=== PATIENT | male | born 1970 | race Caucasian/White ===

== ENCOUNTER 2022-08-12 07:22 | Outpatient (CLI) | payer OTHER, SELFPAY ==
--- NOTE | ~2022-08-12 | PE_ITS ---
EXAMINATION: PET skull to mid thigh DATE: 08/12/2022 09:32 INDICATION: Adrenal mass. TECHNIQUE: Blood glucose level was 81 mg/dL. 11.258 mCi of 18-fluorodeoxyglucose (18-FDG) was adminis tered i.v. Low dose computed tomography (CT) images were acquired from the base of the brain to the p roximal thighs for attenuation correction and anatomic localization. Automated exposure control was e mployed. Dose-length product (DLP) was 1123 mGy-cm. Positron emission tomography (PET) images were ac quired in the same distribution. COMPARISON: None FINDINGS: Head/neck: There are no pathologically enlarged lymph nodes. Chest: The lungs demonstrate mild atelectasis. No pleural effusion. There is a moderate-sized sliding hiatal hernia. The heart size is normal. No pericardial effusion. There is mild mediastinal lymphade nopathy with activity similar to liver activity, likely reactive. Abdomen/pelvis/proximal thighs: There is diffuse hepatic steatosis. The gallbladder, spleen, pancreas , and right adrenal gland are normal. There is a 4.9 cm mass in left adrenal gland with areas of low attenuation and areas of soft tissue attenuation with activity similar to liver activity with maximum SUV of 3.6. There is a 4.9 cm cyst in right kidney. Left kidney is normal. There are no dilated loop s of bowel. The appendix is normal. There are no pathologically enlarged lymph nodes. There is no mary e intraperitoneal fluid. There is no osseous malignancy. IMPRESSION: 1. 4.9 cm left adrenal mass with activity similar to liver activity with maximum SUV of 3.6. The diff erential diagnosis includes adenoma and adrenal cortical carcinoma. Consider resection. Reviewed, dictated and finalized at location A. IMPRESSION: 1. 4.9 cm left adrenal mass with activity similar to liver activity with maximu m SUV of 3.6. The differential diagnosis includes adenoma and adrenal cortical carcinoma. Consider resection.
[2022-08-12 07:58] LABS: Glucose Point of Care 81 mg/dl (65-105)
== END 2022-08-12 07:23 | disposition home or self-care (01) ==
LOC: ANHIMG 07:33
PROVIDERS: PCP Internal Medicine; Visit Provider Internal Medicine Hematology & Oncology
DX: E27.8 Other specified disorders of adrenal gland (principal); D35.02 Benign neoplasm of left adrenal gland
CPT/HCPCS: 78815; A9552

== ENCOUNTER 2022-12-08 09:03 | Outpatient (CLI) | payer OTHER, SELFPAY ==
[2022-12-08 09:14] LABS: Basophils Absolute Auto 0.1 K/mm3 (0.0-0.1); Basophils Percent Auto 0.7 % (0.2-1.2); Eosinophils Absolute Auto 0.2 K/mm3 (0-0.3); Eosinophils Percent Auto 2.7 % (0-4.4); Hematocrit 39.9 % (42.0-52.0); Hemoglobin 13.5 g/dL (14.0-18.0); Immature Granulocyte Absolute 0.02 K/mm3 (0.00-0.031); Immature Granulocyte Percent A 0.3 % (0-0.5); Lymphocytes Absolute Auto 2.66 K/mm3 (0.9-3.2); Lymphocytes Percent Auto 37.6 % (18.3-44.2); Mean Corpuscular HGB Conc 33.8 g/dl (32-36); Mean Corpuscular Hemoglobin 29.5 pg (26-34); Mean Corpuscular Volume 87.3 fl (80-100); Mean Platelet Volume 9.9 fl (7.4-10.4); Monocytes Absolute Auto 0.6 K/mm3 (0.1-0.6); Neutrophils Absolute Auto 3.5 K/mm3 (1.3-6.7); Neutrophils Percent Auto 49.7 % (45.5-73.1); Platelet Count Result 342 k/mm3 (150-375); Red Blood Count 4.57 M/mm3 (4.6-6.20); Red Cell Distribution Width 12.7 % (11.5-14.5); White Blood Count 7.1 K/mm3 (4.5-10.0)
[2022-12-08 09:21] LABS: Blood Urea Nitrogen 14 mg/dL (8-26); Carbon Dioxide 24 mmol/L (22-30); Chloride 103 mmol/L (98-109); Estimated Glomerular Filt Rate > 60; Glucose 88 mg/dL (70-105); Ionized Calcium (POC) 1.22 mmol/L (1.11-1.31); Potassium 4.3 mmol/L (3.5-4.9); Sodium 139 mmol/L (138-146)
[2022-12-08 11:25] LABS: Alanine Aminotransferase 27 U/L (6-50); Albumin Level 4.5 g/dL (3.5-5.1); Alkaline Phosphatase 65 U/L (38-126); Anion Gap 8 mmol/L (8-16); Aspartate Amino Transferase 32 U/L (17-59); Bilirubin,Total 0.8 mg/dL (0.2-1.3); Blood Urea Nitrogen 14 mg/dL (9-20); Calcium 9.6 mg/dL (8.4-10.2); Carbon Dioxide 23 mmol/L (22-30); Chloride 103 mmol/L (98-107); Estimated Glomerular Filt Rate > 60; Glucose 87 mg/dL (65-110); Potassium 4.3 mmol/L (3.4-5.0); Sodium 134 mmol/L (137-145)
== END 2022-12-08 09:04 | disposition home or self-care (01) ==
LOC: ANHLAB 09:05
PROVIDERS: PCP Internal Medicine; Visit Provider Internal Medicine Hematology & Oncology
DX: E27.8 Other specified disorders of adrenal gland (principal)
CPT/HCPCS: 36415; 80047; 80053; 85025

== ENCOUNTER 2023-03-18 10:08 | Outpatient (CLI) | payer OTHER, SELFPAY ==
[2023-03-18 10:24] LABS: Basophils Absolute Auto 0.1 K/mm3 (0.0-0.1); Basophils Percent Auto 0.4 % (0.2-1.2); Eosinophils Absolute Auto 0.2 K/mm3 (0-0.3); Hemoglobin 13.7 g/dL (14.0-18.0); Immature Granulocyte Absolute 0.05 K/mm3 (0.00-0.031); Immature Granulocyte Percent A 0.3 % (0-0.5); Lymphocytes Absolute Auto 3.02 K/mm3 (0.9-3.2); Lymphocytes Percent Auto 19.9 % (18.3-44.2); Mean Corpuscular HGB Conc 34.3 g/dl (32-36); Mean Corpuscular Hemoglobin 29.7 pg (26-34); Mean Corpuscular Volume 86.6 fl (80-100); Mean Platelet Volume 9.7 fl (7.4-10.4); Monocytes Absolute Auto 1.3 K/mm3 (0.1-0.6); Monocytes Percent Auto 8.2 % (2.6-8.5); Neutrophils Absolute Auto 10.6 K/mm3 (1.3-6.7); Neutrophils Percent Auto 70.2 % (45.5-73.1); Platelet Count Result 316 k/mm3 (150-375); Red Blood Count 4.62 M/mm3 (4.6-6.20); Red Cell Distribution Width 13.1 % (11.5-14.5); White Blood Count 15.2 K/mm3 (4.5-10.0)
[2023-03-18 10:30] LABS: Blood Urea Nitrogen 11 mg/dL (8-26); Carbon Dioxide 23 mmol/L (22-30); Chloride 102 mmol/L (98-109); Estimated Glomerular Filt Rate > 60; Glucose 86 mg/dL (70-105); Ionized Calcium (POC) 1.25 mmol/L (1.11-1.31); Potassium 4.1 mmol/L (3.5-4.9); Sodium 138 mmol/L (138-146)
[2023-03-18 11:25] LABS: Alanine Aminotransferase 25 U/L (6-50); Albumin Level 4.7 g/dL (3.5-5.1); Alkaline Phosphatase 74 U/L (38-126); Anion Gap 13 mmol/L (8-16); Aspartate Amino Transferase 31 U/L (17-59); Blood Urea Nitrogen 12 mg/dL (9-20); Calcium 9.9 mg/dL (8.4-10.2); Carbon Dioxide 23 mmol/L (22-30); Chloride 102 mmol/L (98-107); Estimated Glomerular Filt Rate > 60; Glucose 83 mg/dL (65-110); Potassium 4.1 mmol/L (3.4-5.0); Sodium 138 mmol/L (137-145)
== END 2023-03-18 10:09 | disposition home or self-care (01) ==
LOC: ANHLAB 10:10
PROVIDERS: PCP Internal Medicine; Visit Provider Internal Medicine Hematology & Oncology
DX: E27.8 Other specified disorders of adrenal gland (principal)
CPT/HCPCS: 36415; 80047; 80053; 85025

== ENCOUNTER 2023-06-16 08:42 | Outpatient (CLI) | payer OTHER, SELFPAY ==
[2023-06-16 09:05] LABS: Basophils Percent Auto 0.4 % (0.2-1.2); Eosinophils Absolute Auto 0.1 K/mm3 (0-0.3); Eosinophils Percent Auto 1.8 % (0-4.4); Hematocrit 38.7 % (42.0-52.0); Hemoglobin 13.1 g/dL (14.0-18.0); Immature Granulocyte Absolute 0.01 K/mm3 (0.00-0.031); Immature Granulocyte Percent A 0.1 % (0-0.5); Lymphocytes Absolute Auto 2.67 K/mm3 (0.9-3.2); Lymphocytes Percent Auto 36.8 % (18.3-44.2); Mean Corpuscular HGB Conc 33.9 g/dl (32-36); Mean Corpuscular Hemoglobin 29.7 pg (26-34); Mean Corpuscular Volume 87.8 fl (80-100); Mean Platelet Volume 10.1 fl (7.4-10.4); Monocytes Absolute Auto 0.6 K/mm3 (0.1-0.6); Monocytes Percent Auto 8.4 % (2.6-8.5); Neutrophils Absolute Auto 3.8 K/mm3 (1.3-6.7); Neutrophils Percent Auto 52.5 % (45.5-73.1); Platelet Count Result 268 k/mm3 (150-375); Red Blood Count 4.41 M/mm3 (4.6-6.20); Red Cell Distribution Width 13.2 % (11.5-14.5); White Blood Count 7.3 K/mm3 (4.5-10.0)
[2023-06-16 10:37] LABS: Alanine Aminotransferase 30 U/L (6-50); Albumin Level 4.3 g/dL (3.5-5.1); Alkaline Phosphatase 63 U/L (38-126); Anion Gap 8 mmol/L (8-16); Aspartate Amino Transferase 39 U/L (17-59); Bilirubin,Total 1.4 mg/dL (0.2-1.3); Blood Urea Nitrogen 15 mg/dL (9-20); Calcium 9.2 mg/dL (8.4-10.2); Carbon Dioxide 23 mmol/L (22-30); Chloride 107 mmol/L (98-107); Estimated Glomerular Filt Rate > 60; Glucose 90 mg/dL (65-110); Potassium 4.1 mmol/L (3.4-5.0); Sodium 138 mmol/L (137-145)
== END 2023-06-16 08:43 | disposition home or self-care (01) ==
LOC: ANHLAB 08:43
PROVIDERS: PCP Internal Medicine; Visit Provider Internal Medicine Hematology & Oncology
DX: E27.8 Other specified disorders of adrenal gland (principal)
CPT/HCPCS: 36415; 80053; 85025

== ENCOUNTER 2024-06-24 08:46 | Outpatient (CLI) | payer OTHER, SELFPAY ==
[2024-06-24 08:58] LABS: Basophils Absolute Auto 0.1 K/mm3 (0.0-0.1); Basophils Percent Auto 0.7 % (0.2-1.2); Eosinophils Absolute Auto 0.2 K/mm3 (0-0.3); Eosinophils Percent Auto 3.3 % (0-4.4); Hematocrit 43.1 % (42.0-52.0); Hemoglobin 14.4 g/dL (14.0-18.0); Immature Granulocyte Absolute 0.02 K/mm3 (0.00-0.031); Immature Granulocyte Percent A 0.3 % (0-0.5); Lymphocytes Absolute Auto 2.69 K/mm3 (0.9-3.2); Lymphocytes Percent Auto 37.5 % (18.3-44.2); Mean Corpuscular HGB Conc 33.4 g/dl (32-36); Mean Corpuscular Hemoglobin 29.3 pg (26-34); Mean Corpuscular Volume 87.6 fl (80-100); Mean Platelet Volume 9.7 fl (7.4-10.4); Monocytes Absolute Auto 0.5 K/mm3 (0.1-0.6); Monocytes Percent Auto 7.1 % (2.6-8.5); Neutrophils Absolute Auto 3.7 K/mm3 (1.3-6.7); Neutrophils Percent Auto 51.1 % (45.5-73.1); Platelet Count Result 297 k/mm3 (150-375); Red Blood Count 4.92 M/mm3 (4.6-6.20); Red Cell Distribution Width 13.2 % (11.5-14.5); White Blood Count 7.2 K/mm3 (4.5-10.0)
[2024-06-24 09:02] LABS: Blood Urea Nitrogen 19 mg/dL (8-26); Carbon Dioxide 23 mmol/L (22-30); Chloride 106 mmol/L (98-109); Estimated Glomerular Filt Rate > 60; Glucose 95 mg/dL (70-105); Ionized Calcium (POC) 1.19 mmol/L (1.11-1.31); Potassium 4.3 mmol/L (3.5-4.9); Sodium 140 mmol/L (138-146)
--- OUTSIDE RECORDS SUMMARY | 2024-06-24 09:14 | XMS_ITS | Encounter Summary ---
Author Organization [facility] [employer] [facility] Address [address] [place] [address] Care Team Providers Care Slurry Mixer Name Role Phone Fela Pelayo MD Primary Care Provider Encounter Details Date Type Department Care Team (Late st Contact Info) Description 06/23/2024 Orders Only [facility] Oncology [facility] Hematology [facility] [address] [place] [address] Franky Whyte MD [email or web address] [place] [id number] Adrenal mass (Primary Dx) Social History Tobacco Use Types Packs/Day Years Used Date Smoking Tobacco: Former Cigarettes Q uit: 11/2021 Smokeless Tobacco: Never Alcohol Use Standard Drinks/Week Comments Not Currently 0 (1 standard drink = 0.6 oz pur e alcohol) Feeling Safe Answer Date Recorded Are you in a relationship wi th someone who hurts you emotionally and/or physically? 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 Visit [facility] Oncology and Hematology [facility] [address] [place] [address] Franky Whyte MD [email or web address] [place] [address] Arrived 09/06/2024 9:00 AM CDT Office Visit [facility] UROLOGY - [place] [address] [facility] [address] [place] [address] Shanae Lyman MD [address] [facility] [address] [place] [address] Scheduled Orders Name Type Priority Associated Diagnoses Orde r Schedule CBC WITH DIFFERENTIAL Lab Routine Adrenal mass Expected: 06/23/2024, Expires: 06/23/2025 COMPREHENSIVE METABOLIC PANEL Lab Routine Adrenal mass Expected: 06/23/2024, Expires: 06/23/2025 documented as of this encounter Visit Diagnoses Diagnosis Adrenal mass- Primary Unspecified disorder of adrenal glands documented in this encounter Care Teams Slurry Mixer Relationship Specialty Start Date End Date Fela Pelayo MD PCP - General Internal Medicine 07/25/22 documented as of this encounter
--- OUTSIDE RECORDS SUMMARY | 2024-06-24 09:14 | XMS_ITS | Data Portability ---
Author Organization [employer] [facility] [employer], Main Office Address [address] [place] [id number] Care Team Providers Care Energy Derivatives Trader Name Role Phone IVAN WHYTE Counter Molder FELA PELAYO Primary Care Provider BRUNILDA CRUZ Terminal Computer Operator ABBY MURRIETA Guest House Manager HIMANSHU LYMAN Urologist Assessment Encounter Date Assessment Date Assessment LastModified by Organization Details LastModified Time 10/14/2022 10/14/2022 06/18/2022: LDL 120 VIT D 27.7 CMP: BUN 20 CBC: WNL TSH/FT4: WNL Not available 10/13/2022 08:53:58 12/30/2022 12/30/2022 06/18/2022: LDL 120 VIT D 27.7 CMP: BUN 20 CBC: WNL TSH/FT4: WNL 10/21/2022: PSA 1.13 TSH/FT4/Lipid s: WNL 12/08/2022: Dr Whyte HGB/HCT 13.5/39.9 Not available 12/29/2022 08:31:32 04/23/2023 04/23/2023 06/18/2022: LDL 120 VIT D 27.7 CMP: BUN 20 CBC: WNL TSH/FT4: WNL 10/21/2022: PSA 1.13 TSH/FT4/Lipid s: WNL 12/08/2022: Dr Whyte HGB/HCT 13.5/39.9 04/16/2023: TSH/CBC/VIT D: WNL BUN 21 Not available 04/23/2023 09:27:38 09/22/2023 09/22/2023 06/18/2022: LDL 120 VIT D 27.7 CMP: BUN 20 CBC: WNL TSH/FT4: WNL 10/21/2022: PSA 1.13 TSH/FT4/Lipid s: WNL 12/08/2022: Dr Whyte HGB/HCT 13.5/39.9 04/16/2023: TSH/CBC/VIT D: WNL BUN 21 09/17/2023: BUN 20, T bili 1.40H Not available 09/22/2023 09:31:37 03/22/2024 03/22/2024 06/18/2022: LDL 120 VIT D 27.7 CMP: BUN 20 CBC: WNL TSH/FT4: WN 10/21/2022: PSA 1.13 TSH/FT4/Lipid s: WN 12/08/2022: Dr Whyte HGB/HCT 13.5/39.9 04/16/2023: TSH/CBC/VIT D: WNL BUN 21 09/17/2023: BUN 20, T bili 1.40H 03/17/2024: Stable Not available 03/22/2024 10:12:52 Plan of Treatment Reminders Order Date Submit Date Provider Last Modified By Organization Details Last Modified Time Details Appointments Any 15 2024 08:30A Na [email or web address] MD Not available Not available Not available Lab vitamin D, 25-hydrox y, total, serum [address] (Lab), [address] [place], [address], 03/22/2024 10:14:14 lipid panel, serum [address] (Lab), [address] [place], [address], 03/22/2024 10:14:13 TSH, serum or plasma [address] (Lab), [address] [place], [address], 03/22/2024 10:14:13 CMP, serum or plasma [address] (Lab), [address] [place], [address], 03/22/2024 10:14:13 CBC w/ auto diff [address] (Lab), [address] [place], [address], 03/22/2024 10:14:14 lipid panel, serum 2023 024 [facility] (Lab), [address] [place], [address], 03/17/2024 11:12:58 TSH, serum or plasma 2023 024 [facility] (Lab), [address] [place], [address], 03/17/2024 11:36:57 CMP, serum or plasma 2023 024 [facility] (Lab), [address] [place], [address], 03/17/2024 11:13:01 CBC w/ auto diff 2023 024 [facility] (Lab), [address] [place], [address], 03/17/2024 10:47:49 vitamin D, 25-hydrox y, total, serum [address] (Lab), [address] [place], [address], 03/29/2024 16:04:59 vitamin D, 25-hydrox y, total, serum [address] (Lab), [address] [place], [address], 10/20/2023 09:53:34 lipid panel, serum 2022 023 [facility] (Lab), [address] [place], [address], 09/17/2023 12:08:14 TSH, serum or plasma 2022 023 [facility] (Lab), [address] [place], [address], 09/17/2023 12:38:50 CMP, serum or plasma 2022 023 [facility] (Lab), [address] [place], [address], 06/16/2023 12:57:32 CBC w/ auto diff 2022 023 [facility] (Lab), [address] [place], [address], 09/17/2023 11:58:02 vitamin D, 25-hydrox y, total, serum [address] (Lab), [address] [place], [address], 06/29/2023 09:04:27 lipid panel, serum 2022 023 [facility] (Lab), [address] [place], [address], 04/16/2023 10:43:55 TSH, serum or plasma 2022 023 [facility] (Lab), [address] [place], [address], 04/16/2023 10:45:26 CMP, serum or plasma 2022 023 [facility] (Lab), [address] [place], [address], 03/19/2023 00:39:23 CBC w/ auto diff 2022 023 [facility] (Lab), [address] [place], [address], 03/18/2023 14:10:08 PSA, total, serum or plasma 2022 023 [facility] (Lab), [address] [place], [address], 10/21/2022 11:15:17 vitamin D, 25-hydrox y, total, serum [email or web address] (Lab), [address] [place], [address], 05/05/2023 17:38:50 lipid panel, serum 2022 023 [facility] (Lab), [address] [place], [address], 10/21/2022 10:36:03 TSH, serum or plasma 2022 023 [facility] (Lab), [address] [place], [address], 10/21/2022 11:15:10 CMP, serum or plasma 2022 023 [facility] (Lab), [address] [place], [address], 10/21/2022 10:36:09 CBC w/ auto diff 2022 023 [facility] (Lab), [address] [place], [address], 10/21/2022 10:12:07 Referral pulmonolo gist referral 2023 024 Johann Sawant MD, [address] [facility] [place], [address], 03/23/2024 15:14:34 hepatolog ist referral - Please call patient to schedule. 2023 024 [email or web address] Abby Murrieta MD, [address] [facility], [address], [place], [address], 06/23/2024 08:57:28 cardiolog ist referral 2023 024 [email or web address] [place], [address], [address], [place], [address], 03/23/2024 15:11:26 pulmonolo gist referral 2023 024 [email or web address] Johann Sawant MD, [address] [facility] [place], [address], 12/21/2023 16:58:56 cardiolog ist referral 2023 024 [email or web address] [place], [address], [address], [place], [address], 03/29/2024 16:05:13 oncologis t referral 2023 024 [email or web address] Not available 01/18/2024 12:38:57 cardiolog ist referral 2022 023 [place], [address], [address], [place], [address], 06/23/2023 12:37:44 Procedures None recorded. Surgeries None recorded. Imaging CT, chest, w/o contrast - no auth required [id number] [facility] ([facility]), [address] [place], [address], 10/06/2023 08:59:21 US, liver - no auth required [email or web address] [facility] ([facility]), [address] [place], [address], 12/15/2023 16:21:52 Medication Orders None recorded. Patient TargetsNo targets recorded. Patient InstructionsNo instructions recorded. Reason for Referral Terminal Computer Operator Referral for Sc reening for cardiovascular system disease Referring Physician: Fela Pelayo Internal Medicine, Encounter Date: 04/23/2023 Terminal Computer Operator Referral for Sc reening for cardiovascular system disease Referring Physician: Stephanie Alonso Medicine, Encounter Date: 09/22/2023 Leasing Representative Referral for O bstructive sleep apnea syndrome Referring Physician: Stephanie Alonso Medicine, Encounter Date: 09/22/2023 Referring Physician: Stephanie Alonso Medicine, Encounter Date: 09/22/2023 Terminal Computer Operator Referral for Sc reening for cardiovascular system disease Referring Physician: Stephanie Alonso Medicine, Encounter Date: 03/22/2024 Leasing Representative Referral for O bstructive sleep apnea syndrome Referring Physician: Stephanie Alonso Medicine, Encounter Date: 03/22/2024 Hospital Internship Referral for He patomegaly Please call patient to schedule. Referring Physician: Stephanie Alonso, Encounter Date: 03/22/2024 Results Created Date Observation Date Name Description Value Unit Range Abnormal Flag Note LastModifiedBy Organization Detail LastModifiedTime 10/22/19 23 10/21/2022 CBC/C OMPLE TE BLD COUNT W/DIF F white blood cells 9.7 x10'3 /uL 4.2-10 .8 Not Available [facility] (Lab) [address] [place], [address], 10/21/2022 10:12:07 10/22/19 23 10/21/2022 CBC/C OMPLE TE BLD COUNT W/DIF F red blood cells 4.72 x10'6 /uL 4.10-5 .80 Not Available [facility] (Lab) [address] [place], [address], 10/21/2022 10:12:07 10/22/19 23 10/21/2022 CBC/C OMPLE TE BLD COUNT W/DIF F hemoglobin 13.9 g/dL 13.2-1 7.0 Not Available [facility] (Lab) [address] [place], [address], 10/21/2022 10:12:07 10/22/19 23 10/21/2022 CBC/C OMPLE TE BLD COUNT W/DIF F hematocrit 42.0 % 39.3-5 0.0 Not Available [facility] (Lab) [address] [place], [address], 10/21/2022 10:12:07 10/22/19 23 10/21/2022 CBC/C OMPLE TE BLD COUNT W/DIF F mean red cell volume 89.0 fL 80.0-9 7.0 Not Available [facility] (Lab) [address] [place], [address], 10/21/2022 10:12:07 10/22/19 23 10/21/2022 CBC/C OMPLE TE BLD COUNT W/DIF F mean red cell hemoglobin 29.4 pg 27.0-3 3.0 Not Available [facility] (Lab) [address] [place], [address], 10/21/2022 10:12:07 10/22/19 23 10/21/2022 CBC/C OMPLE TE BLD COUNT W/DIF F mean RBC HGB concentratio n 33.1 g/dL 31.0-3 6.0 Not Available [facility] (Lab) [address] [place], [address], 10/21/2022 10:12:07 10/22/19 23 10/21/2022 CBC/C OMPLE TE BLD COUNT W/DIF F red cell distribution width 13.3 % 11.8-1 5.5 Not Available [facility] (Lab) [address] [place], [address], 10/21/2022 10:12:07 10/22/19 23 10/21/2022 CBC/C OMPLE TE BLD COUNT W/DIF F platelets 322 x10'3 /uL 150-40 0 Not Available [facility] (Lab) [address] [place], [address], 10/21/2022 10:12:07 10/22/19 23 10/21/2022 CBC/C OMPLE TE BLD COUNT W/DIF F mean platelet volume 10.3 fL 9.0-12 .4 Not Available [facility] (Lab) [address] [place], [address], 10/21/2022 10:12:07 10/22/19 23 10/21/2022 CBC/C OMPLE TE BLD COUNT W/DIF F neutrophils 65.8 % 39.0-7 2.0 Not Available [facility] (Lab) [address] [place], [address], 10/21/2022 10:12:07 10/22/19 23 10/21/2022 CBC/C OMPLE TE BLD COUNT W/DIF F lymphocytes 23.4 % 16.0-4 7.0 Not Available [facility] (Lab) [address] [place], [address], 10/21/2022 10:12:07 10/22/19 23 10/21/2022 CBC/C OMPLE TE BLD COUNT W/DIF F monocytes 7.4 % 5.0-12 .0 Not Available [facility] (Lab) [address] [place], [address], 10/21/2022 10:12:07 10/22/19 23 10/21/2022 CBC/C OMPLE TE BLD COUNT W/DIF F eosinophils 2.4 % 1.0-7. 0 Not Available [facility] (Lab) [address] [place], [address], 10/21/2022 10:12:07 10/22/19 23 10/21/2022 CBC/C OMPLE TE BLD COUNT W/DIF F basophils 0.6 % 0.0-2. 0 Not Available [facility] (Lab) [address] [place], [address], 10/21/2022 10:12:07 10/22/19 23 10/21/2022 CBC/C OMPLE TE BLD COUNT W/DIF F immature granulocytes 0.4 % 0.00-0 .50 Not Available [facility] (Lab) [address] [place], [address], 10/21/2022 10:12:07 10/22/19 23 10/21/2022 CBC/C OMPLE TE BLD COUNT W/DIF F neutrophils, absolute count 6.35 x10'3 /uL 1.5-8. 0 Not Available [facility] (Lab) [address] [place], [address], 10/21/2022 10:12:07 10/22/19 23 10/21/2022 CBC/C OMPLE TE BLD COUNT W/DIF F lymphocytes, absolute count 2.26 x10'3 /uL 1.07-3 .43 Not Available [facility] (Lab) [address] [place], [address], 10/21/2022 10:12:07 10/22/19 23 10/21/2022 CBC/C OMPLE TE BLD COUNT W/DIF F monocytes, absolute count 0.71 x10'3 /uL 0.29-0 .99 Not Available [facility] (Lab) [address] [place], [address], 10/21/2022 10:12:07 10/22/19 23 10/21/2022 CBC/C OMPLE TE BLD COUNT W/DIF F eosinophils, absolute count 0.23 x10'3 /uL 0.02-0 .53 Not Available [facility] (Lab) [address] [place], [address], 10/21/2022 10:12:07 10/22/19 23 10/21/2022 CBC/C OMPLE TE BLD COUNT W/DIF F basophils, absolute count 0.06 x10'3 /uL 0.01-0 .08 Not Available [facility] (Lab) [address] [place], [address], 10/21/2022 10:12:07 10/22/19 23 10/21/2022 CBC/C OMPLE TE BLD COUNT W/DIF F immature granulocytes ,absolute 0.04 x10'3 /uL 0.00-0 .05 Not Available [facility] (Lab) [address] [place], [address], 10/21/2022 10:12:07 10/22/19 23 10/21/2022 CBC/C OMPLE TE BLD COUNT W/DIF F nucleated red blood cells 0.0 % -0 Not Available [facility] (Lab) [address] [place], [address], 10/21/2022 10:12:07 10/22/19 23 10/21/2022 CBC/C OMPLE TE BLD COUNT W/DIF F NRBC# 0.00 x10'3 /uL Not Available [facility] (Lab) [address] [place], [address], 10/21/2022 10:12:07 10/22/19 23 10/21/2022 LIPID PANEL cholesterol 142 mg/dL 140-19 9 NIH STEVE NSUS RECOM MENDA TION FOR FABIO STERO L: ADULT CHILD LOW RISK: <200 <170 BORDE RLINE : <200- 239 ----- HIGH RISK: >240 >200 Not Available [facility] (Lab) [address] [place], [address], 10/21/2022 10:36:03 10/22/19 23 10/21/2022 LIPID PANEL triglyceride s 96 mg/dL 0-150 NIH STEVE NSUS REPOR T RECOM MENDA TION FOR TRIGL YCERI TIFFANIE: ADULT CHILD LOW RISK: <150 ----- BODER LINE: 150-1 99 ----- HIGH RISK: >200 ----- Not Available [facility] (Lab) [address] [place], [address], 10/21/2022 10:36:03 10/22/19 23 10/21/2022 LIPID PANEL HDL cholesterol 37 mg/dL 40- low Not Available [facility] (Lab) [address] [place], [address], 10/21/2022 10:36:03 10/22/19 23 10/21/2022 LIPID PANEL LDL cholesterol, calculated 86 mg/dL 0-130 NIH STEVE NSUS REPOR T RECOM MENDA TIONS FOR LDL: ADULT CHILD LOW RISK <130 <110 (OPTI MAL LDL) <100 ----- BORDE RLINE : 130-1 59 ----- HIGH RISK: >160 >130 A TRIGL YCERI DE RESUL T >400 INVAL IDATE S THE CALCU LATIO N FOR LDL FRACT IONAT ION - THE LDL RESUL T WILL NOT BE REPOR MARKIE. Not Available [facility] (Lab) [address] [place], [address], 10/21/2022 10:36:03 10/22/19 23 10/21/2022 COMPR EHENS SB METAB OLIC PANEL sodium 141 mmol/ L 137-14 5 Not Available [facility] (Lab) [address] [place], [address], 10/21/2022 10:36:09 10/22/19 23 10/21/2022 COMPR EHENS SB METAB OLIC PANEL potassium 4.3 mmol/ L 3.5-5. 1 Not Available [facility] (Lab) [address] [place], [address], 10/21/2022 10:36:09 10/22/19 23 10/21/2022 COMPR EHENS SB METAB OLIC PANEL chloride 103 mmol/ L 98-107 Not Available [facility] (Lab) [address] [place], [address], 10/21/2022 10:36:09 10/22/19 23 10/21/2022 COMPR EHENS SB METAB OLIC PANEL carbon dioxide 26 mmol/ L 22-30 Not Available [facility] (Lab) [address] [place], [address], 10/21/2022 10:36:09 10/22/19 23 10/21/2022 COMPR EHENS SB METAB OLIC PANEL anion gap 16.3 mmol/ L 14-22 Not Available [facility] (Lab) [address] [place], [address], 10/21/2022 10:36:09 10/22/19 23 10/21/2022 COMPR EHENS SB METAB OLIC PANEL glucose 96 mg/dL 70-99 Not Available [facility] (Lab) [address] [place], [address], 10/21/2022 10:36:09 10/22/19 23 10/21/2022 COMPR EHENS SB METAB OLIC PANEL BUN 14 mg/dL 8-19 Not Available [facility] (Lab) [address] [place], [address], 10/21/2022 10:36:09 10/22/19 23 10/21/2022 COMPR EHENS SB METAB OLIC PANEL creatinine 0.85 mg/dL 0.66-1 .25 Not Available [facility] (Lab) [address] [place], [address], 10/21/2022 10:36:09 10/22/19 23 10/21/2022 COMPR EHENS SB METAB OLIC PANEL GFR >60 Refer ence Range : [place] ge GFR Healt hy Adult : >60 mL/mi n/1.7 3 m2 Chron ic Kidne y Disea se: 15-60 mL/mi n/1.7 3 m2 Kidne y Failu re: <15/m L/min /1.73 m2 www.n iddk. nih.g ov The MDRD study equat ion has not been valid ated in child bing <18 years of age; pregn ant women ; the elder ly >85 years of age; or in some racia l or ethni c subgr oups, such as Hisnj nics. Outsi de the valid ated justino eters , estim ated GFR is less accur ate, requi ring clini noam judgm ent on a case- by-ca se basis . Clini noam inter preta tion for other races and ages must be made by the clini marty. The MDRD study equat ion has not been valid ated for the evalu ation of serum creat inine relat ed to nutri tc l statu s or medic ation usage . For perso ns <18 years of age, a pedia tric GFR calcu lator is avail able on the [facility] websi te: https ://nicanor w.kid levi.o rg/pr ofess ional s/kdo qi/gf r_cal culat or Not Available [facility] (Lab) [address] [place], [address], 10/21/2022 10:36:09 10/22/19 23 10/21/2022 COMPR EHENS SB METAB OLIC PANEL alkaline phosphatase 51 U/L 38-126 Not Available [facility] (Lab) [address] [place], [address], 10/21/2022 10:36:09 10/22/19 23 10/21/2022 COMPR EHENS SB METAB OLIC PANEL alanine aminotransfe rase 43 U/L 0-50 Not Available [facility] (Lab) [address] [place], [address], 10/21/2022 10:36:09 10/22/19 23 10/21/2022 COMPR EHENS SB METAB OLIC PANEL aspartate aminotransfe rase 46 U/L 15-46 Not Available [facility] (Lab) [address] [place], [address], 10/21/2022 10:36:09 10/22/19 23 10/21/2022 COMPR EHENS SB METAB OLIC PANEL bilirubin, total 0.90 mg/dL 0.20-1 .30 Not Available [facility] (Lab) [address] [place], [address], 10/21/2022 10:36:09 10/22/19 23 10/21/2022 COMPR EHENS SB METAB OLIC PANEL calcium 10.7 mg/dL 8.4-10 .2 high Not Available [facility] (Lab) [address] [place], [address], 10/21/2022 10:36:09 10/22/19 23 10/21/2022 COMPR EHENS SB METAB OLIC PANEL total protein 7.5 g/dL 6.3-8. 2 Not Available [facility] (Lab) [address] [place], [address], 10/21/2022 10:36:09 10/22/19 23 10/21/2022 COMPR EHENS SB METAB OLIC PANEL albumin 4.3 g/dL 3.4-5. 0 Not Available [facility] (Lab) [address] [place], [address], 10/21/2022 10:36:09 10/22/19 23 10/21/2022 COMPR EHENS SB METAB OLIC PANEL globulin 3.2 g/dL 2.6-4. 2 Not Available [facility] (Lab) [address] [place], [address], 10/21/2022 10:36:09 10/22/19 23 10/21/2022 COMPR EHENS SB METAB OLIC PANEL A/G ratio 1.3 ratio 1.0-2. 0 Not Available [facility] (Lab) [address] [place], [address], 10/21/2022 10:36:09 10/22/19 23 10/21/2022 VITAM IN D 25-HY DROXY [id number] 49.8 NG/mL 30-100 Vitam in D Statu s: Defic ient: <20 ng/mL Insuf ficie nt: 20-29 ng/mL Suffi cient : 30-10 0 ng/mL Not Available [facility] (Lab) [address] [place], [address], 10/21/2022 10:49:47 10/22/19 23 10/21/2022 TSH W/REF TRACIE FT4 TSH with reflex free T4 1.710 uIU/m L 0.465- 4.680 Not Available [facility] (Lab) [address] [place], [address], 10/21/2022 11:15:09 10/22/19 23 10/21/2022 PSA SCREE N PSA medicare screen 1.13 NG/mL 0.00-4 .00 Not Available [facility] (Lab) [address] [place], [address], 10/21/2022 11:15:17 04/16/20 23 04/16/2023 LIPID PANEL cholesterol 143 mg/dL 140-19 9 NIH STEVE NSUS RECOM MENDA TION FOR FABIO STERO L: ADULT CHILD LOW RISK: <200 <170 BORDE RLINE : <200- 239 ----- HIGH RISK: >240 >200 Not Available [facility] (Lab) [address] [place], [address], 04/16/2023 10:43:54 04/16/20 23 04/16/2023 LIPID PANEL triglyceride s 115 mg/dL 0-150 NIH STEVE NSUS REPOR T RECOM MENDA TION FOR TRIGL YCERI TIFFANIE: ADULT CHILD LOW RISK: <150 ----- BODER LINE: 150-1 99 ----- HIGH RISK: >200 ----- Not Available [facility] (Lab) [address] [place], [address], 04/16/2023 10:43:54 04/16/20 23 04/16/2023 LIPID PANEL HDL cholesterol 30 mg/dL 40- low Not Available [facility] (Lab) [address] [place], [address], 04/16/2023 10:43:54 04/16/20 23 04/16/2023 LIPID PANEL LDL cholesterol, calculated 90 mg/dL 0-130 NIH STEVE NSUS REPOR T RECOM MENDA TIONS FOR LDL: ADULT CHILD LOW RISK <130 <110 (OPTI MAL LDL) <100 ----- BORDE RLINE : 130-1 59 ----- HIGH RISK: >160 >130 A TRIGL YCERI DE RESUL T >400 INVAL IDATE S THE CALCU LATIO N FOR LDL FRACT IONAT ION - THE LDL RESUL T WILL NOT BE REPOR MARKIE. Not Available [facility] (Lab) [address] [place], [address], 04/16/2023 10:43:54 04/16/20 23 04/16/2023 COMPR EHENS SB METAB OLIC PANEL sodium 138 mmol/ L 137-14 5 Not Available [facility] (Lab) [address] [place], [address], 04/16/2023 10:44:00 04/16/20 23 04/16/2023 COMPR EHENS SB METAB OLIC PANEL potassium 4.8 mmol/ L 3.5-5. 1 Not Available [facility] (Lab) [address] [place], [address], 04/16/2023 10:44:00 04/16/20 23 04/16/2023 COMPR EHENS SB METAB OLIC PANEL chloride 104 mmol/ L 98-107 Not Available [facility] (Lab) [address] [place], [address], 04/16/2023 10:44:00 04/16/20 23 04/16/2023 COMPR EHENS SB METAB OLIC PANEL carbon dioxide 23 mmol/ L 22-30 Not Available [facility] (Lab) [address] [place], [address], 04/16/2023 10:44:00 04/16/20 23 04/16/2023 COMPR EHENS SB METAB OLIC PANEL anion gap 15.8 mmol/ L 14-22 Not Available [facility] (Lab) [address] [place], [address], 04/16/2023 10:44:00 04/16/20 23 04/16/2023 COMPR EHENS SB METAB OLIC PANEL glucose 94 mg/dL 70-99 Not Available [facility] (Lab) [address] [place], [address], 04/16/2023 10:44:00 04/16/20 23 04/16/2023 COMPR EHENS SB METAB OLIC PANEL BUN 21 mg/dL 8-19 high Not Available [facility] (Lab) [address] [place], [address], 04/16/2023 10:44:00 04/16/20 23 04/16/2023 COMPR EHENS SB METAB OLIC PANEL creatinine 0.96 mg/dL 0.66-1 .25 Not Available [facility] (Lab) [address] [place], [address], 04/16/2023 10:44:00 04/16/20 23 04/16/2023 COMPR EHENS SB METAB OLIC PANEL GFR >60 Refer ence Range : [place] ge GFR Healt hy Adult : >60 mL/mi n/1.7 3 m2 Chron ic Kidne y Disea se: 15-60 mL/mi n/1.7 3 m2 Kidne y Failu re: <15/m L/min /1.73 m2 www.n iddk. nih.g ov The MDRD study equat ion has not been valid ated in child bing <18 years of age; pregn ant women ; the elder ly >85 years of age; or in some racia l or ethni c subgr oups, such as Conc[place] nics. Outsi de the valid ated justino eters , estim ated GFR is less accur ate, requi ring clini noam judgm ent on a case- by-ca se basis . Clini noam inter preta tion for other races and ages must be made by the clini marty. The MDRD study equat ion has not been valid ated for the evalu ation of serum creat inine relat ed to nutri tc l statu s or medic ation usage . For perso ns <18 years of age, a pedia tric GFR calcu lator is avail able on the [facility] websi te: https ://nicanor sims.marielena rg/pr ofess ional s/kdo qi/gf r_cal culat or Not Available [facility] (Lab) [address] [place], [address], 04/16/2023 10:44:00 04/16/20 23 04/16/2023 COMPR EHENS SB METAB OLIC PANEL alkaline phosphatase 58 U/L 38-126 Not Available [facility] (Lab) [address] [place], [address], 04/16/2023 10:44:00 04/16/20 23 04/16/2023 COMPR EHENS SB METAB OLIC PANEL alanine aminotransfe rase 28 U/L 0-50 Not Available [facility] (Lab) [address] [place], [address], 04/16/2023 10:44:00 04/16/20 23 04/16/2023 COMPR EHENS SB METAB OLIC PANEL aspartate aminotransfe rase 34 U/L 15-46 Not Available [facility] (Lab) [address] [place], [address], 04/16/2023 10:44:00 04/16/20 23 04/16/2023 COMPR EHENS SB METAB OLIC PANEL bilirubin, total 1.10 mg/dL 0.20-1 .30 Not Available [facility] (Lab) [address] [place], [address], 04/16/2023 10:44:00 04/16/20 23 04/16/2023 COMPR EHENS SB METAB OLIC PANEL calcium 9.1 mg/dL 8.4-10 .2 Not Available [facility] (Lab) [address] [place], [address], 04/16/2023 10:44:00 04/16/20 23 04/16/2023 COMPR EHENS SB METAB OLIC PANEL total protein 7.8 g/dL 6.3-8. 2 Not Available [facility] (Lab) [address] [place], [address], 04/16/2023 10:44:00 04/16/20 23 04/16/2023 COMPR EHENS SB METAB OLIC PANEL albumin 4.4 g/dL 3.4-5. 0 Not Available [facility] (Lab) [address] [place], [address], 04/16/2023 10:44:00 04/16/20 23 04/16/2023 COMPR EHENS SB METAB OLIC PANEL globulin 3.4 g/dL 2.6-4. 2 Not Available [facility] (Lab) [address] [place], [address], 04/16/2023 10:44:00 04/16/20 23 04/16/2023 COMPR EHENS SB METAB OLIC PANEL A/G ratio 1.3 ratio 1.0-2. 0 Not Available [facility] (Lab) [address] [place], [address], 04/16/2023 10:44:00 04/16/20 23 04/16/2023 TSH W/REF TRACIE FT4 TSH with reflex free T4 2.480 uIU/m L 0.465- 4.680 Not Available [facility] (Lab) [address] [place], [address], 04/16/2023 11:35:30 04/16/20 23 04/16/2023 VITAM IN D 25-HY DROXY [id number] 45.1 NG/mL 30-100 Vitam in D Statu s: Defic ient: <20 ng/mL Insuf ficie nt: 20-29 ng/mL Suffi cient : 30-10 0 ng/mL Not Available [facility] (Lab) [address] [place], [address], 04/16/2023 10:47:28 04/16/20 23 04/16/2023 CBC/C OMPLE TE BLD COUNT W/DIF F white blood cells 8.3 x10'3 /uL 4.2-10 .8 Not Available [facility] (Lab) [address] [place], [address], 04/16/2023 11:15:00 04/16/20 23 04/16/2023 CBC/C OMPLE TE BLD COUNT W/DIF F red blood cells 4.65 x10'6 /uL 4.10-5 .80 Not Available [facility] (Lab) [address] [place], [address], 04/16/2023 11:15:00 04/16/20 23 04/16/2023 CBC/C OMPLE TE BLD COUNT W/DIF F hemoglobin 13.7 g/dL 13.2-1 7.0 Not Available [facility] (Lab) [address] [place], [address], 04/16/2023 11:15:00 04/16/20 23 04/16/2023 CBC/C OMPLE TE BLD COUNT W/DIF F hematocrit 42.3 % 39.3-5 0.0 Not Available [facility] (Lab) [address] [place], [address], 04/16/2023 11:15:00 04/16/20 23 04/16/2023 CBC/C OMPLE TE BLD COUNT W/DIF F mean red cell volume 91.0 fL 80.0-9 7.0 Not Available [facility] (Lab) [address] [place], [address], 04/16/2023 11:15:00 04/16/20 23 04/16/2023 CBC/C OMPLE TE BLD COUNT W/DIF F mean red cell hemoglobin 29.5 pg 27.0-3 3.0 Not Available [facility] (Lab) [address] [place], [address], 04/16/2023 11:15:00 04/16/20 23 04/16/2023 CBC/C OMPLE TE BLD COUNT W/DIF F mean RBC HGB concentratio n 32.4 g/dL 31.0-3 6.0 Not Available [facility] (Lab) [address] [place], [address], 04/16/2023 11:15:00 04/16/20 23 04/16/2023 CBC/C OMPLE TE BLD COUNT W/DIF F red cell distribution width 13.3 % 11.8-1 5.5 Not Available [facility] (Lab) [address] [place], [address], 04/16/2023 11:15:00 04/16/20 23 04/16/2023 CBC/C OMPLE TE BLD COUNT W/DIF F platelets 323 x10'3 /uL 150-40 0 Not Available [facility] (Lab) [address] [place], [address], 04/16/2023 11:15:00 04/16/20 23 04/16/2023 CBC/C OMPLE TE BLD COUNT W/DIF F mean platelet volume 10.7 fL 9.0-12 .4 Not Available [facility] (Lab) [address] [place], [address], 04/16/2023 11:15:00 04/16/20 23 04/16/2023 CBC/C OMPLE TE BLD COUNT W/DIF F neutrophils 47.7 % 39.0-7 2.0 Not Available [facility] (Lab) [address] [place], [address], 04/16/2023 11:15:00 04/16/20 23 04/16/2023 CBC/C OMPLE TE BLD COUNT W/DIF F lymphocytes 38.1 % 16.0-4 7.0 Not Available [facility] (Lab) [address] [place], [address], 04/16/2023 11:15:00 04/16/20 23 04/16/2023 CBC/C OMPLE TE BLD COUNT W/DIF F monocytes 9.0 % 5.0-12 .0 Not Available [facility] (Lab) [address] [place], [address], 04/16/2023 11:15:00 04/16/20 23 04/16/2023 CBC/C OMPLE TE BLD COUNT W/DIF F eosinophils 4.1 % 1.0-7. 0 Not Available [facility] (Lab) [address] [place], [address], 04/16/2023 11:15:00 04/16/20 23 04/16/2023 CBC/C OMPLE TE BLD COUNT W/DIF F basophils 0.7 % 0.0-2. 0 Not Available [facility] (Lab) [address] [place], [address], 04/16/2023 11:15:00 04/16/20 23 04/16/2023 CBC/C OMPLE TE BLD COUNT W/DIF F immature granulocytes 0.4 % 0.00-0 .50 Not Available [facility] (Lab) [address] [place], [address], 04/16/2023 11:15:00 04/16/20 23 04/16/2023 CBC/C OMPLE TE BLD COUNT W/DIF F neutrophils, absolute count 3.97 x10'3 /uL 1.5-8. 0 Not Available [facility] (Lab) [address] [place], [address], 04/16/2023 11:15:00 04/16/20 23 04/16/2023 CBC/C OMPLE TE BLD COUNT W/DIF F lymphocytes, absolute count 3.17 x10'3 /uL 1.07-3 .43 Not Available [facility] (Lab) [address] [place], [address], 04/16/2023 11:15:00 04/16/20 23 04/16/2023 CBC/C OMPLE TE BLD COUNT W/DIF F monocytes, absolute count 0.75 x10'3 /uL 0.29-0 .99 Not Available [facility] (Lab) [address] [place], [address], 04/16/2023 11:15:00 04/16/20 23 04/16/2023 CBC/C OMPLE TE BLD COUNT W/DIF F eosinophils, absolute count 0.34 x10'3 /uL 0.02-0 .53 Not Available [facility] (Lab) [address] [place], [address], 04/16/2023 11:15:00 04/16/20 23 04/16/2023 CBC/C OMPLE TE BLD COUNT W/DIF F basophils, absolute count 0.06 x10'3 /uL 0.01-0 .08 Not Available [facility] (Lab) [address] [place], [address], 04/16/2023 11:15:00 04/16/20 23 04/16/2023 CBC/C OMPLE TE BLD COUNT W/DIF F immature granulocytes ,absolute 0.03 x10'3 /uL 0.00-0 .05 Not Available [facility] (Lab) [address] [place], [address], 04/16/2023 11:15:00 04/16/20 23 04/16/2023 CBC/C OMPLE TE BLD COUNT W/DIF F nucleated red blood cells 0.0 % -0 Not Available [facility] (Lab) [address] [facility] [place], [address], 04/16/2023 11:15:00 04/16/20 23 04/16/2023 CBC/C OMPLE TE BLD COUNT W/DIF F NRBC# 0.00 x10'3 /uL Not Available [facility] (Lab) [address] [place], [address], 04/16/2023 11:15:00 09/17/19 24 09/17/2023 CBC/C OMPLE TE BLD COUNT W/DIF F white blood cells 7.0 x10'3 /uL 4.2-10 .8 Not Available [facility] (Lab) [address] [place], [address], 09/17/2023 11:58:02 09/17/19 24 09/17/2023 CBC/C OMPLE TE BLD COUNT W/DIF F red blood cells 4.57 x10'6 /uL 4.10-5 .80 Not Available [facility] (Lab) [address] [place], [address], 09/17/2023 11:58:02 09/17/19 24 09/17/2023 CBC/C OMPLE TE BLD COUNT W/DIF F hemoglobin 13.8 g/dL 13.2-1 7.0 Not Available [facility] (Lab) [address] [place], [address], 09/17/2023 11:58:02 09/17/19 24 09/17/2023 CBC/C OMPLE TE BLD COUNT W/DIF F hematocrit 40.2 % 39.3-5 0.0 Not Available [facility] (Lab) [address] [place], [address], 09/17/2023 11:58:02 09/17/19 24 09/17/2023 CBC/C OMPLE TE BLD COUNT W/DIF F mean red cell volume 88.0 fL 80.0-9 7.0 Not Available [facility] (Lab) [address] [place], [address], 09/17/2023 11:58:02 09/17/19 24 09/17/2023 CBC/C OMPLE TE BLD COUNT W/DIF F mean red cell hemoglobin 30.2 pg 27.0-3 3.0 Not Available [facility] (Lab) [address] [place], [address], 09/17/2023 11:58:02 09/17/19 24 09/17/2023 CBC/C OMPLE TE BLD COUNT W/DIF F mean RBC HGB concentratio n 34.3 g/dL 31.0-3 6.0 Not Available [facility] (Lab) [address] [place], [address], 09/17/2023 11:58:02 05/16/20 24 09/17/2023 CBC/C OMPLE TE BLD COUNT W/DIF F red cell distribution width 13.2 % 11.8-1 5.5 Not Available [facility] (Lab) [address] [place], [address], 09/17/2023 11:58:02 09/17/19 24 09/17/2023 CBC/C OMPLE TE BLD COUNT W/DIF F platelets 286 x10'3 /uL 150-40 0 Not Available [facility] (Lab) [address] [place], [address], 09/17/2023 11:58:02 09/17/19 24 09/17/2023 CBC/C OMPLE TE BLD COUNT W/DIF F mean platelet volume 11.3 fL 9.0-12 .4 Not Available [facility] (Lab) [address] [place], [address], 09/17/2023 11:58:02 09/17/19 24 09/17/2023 CBC/C OMPLE TE BLD COUNT W/DIF F neutrophils 56.9 % 39.0-7 2.0 Not Available [facility] (Lab) [address] [place], [address], 09/17/2023 11:58:02 09/17/19 24 09/17/2023 CBC/C OMPLE TE BLD COUNT W/DIF F lymphocytes 31.9 % 16.0-4 7.0 Not Available [facility] (Lab) [address] [place], [address], 09/17/2023 11:58:02 09/17/19 24 09/17/2023 CBC/C OMPLE TE BLD COUNT W/DIF F monocytes 8.0 % 5.0-12 .0 Not Available [facility] (Lab) [address] [place], [address], 09/17/2023 11:58:02 09/17/19 24 09/17/2023 CBC/C OMPLE TE BLD COUNT W/DIF F eosinophils 2.4 % 1.0-7. 0 Not Available [facility] (Lab) [address] [place], [address], 09/17/2023 11:58:02 09/17/19 24 09/17/2023 CBC/C OMPLE TE BLD COUNT W/DIF F basophils 0.4 % 0.0-2. 0 Not Available [facility] (Lab) [address] [place], [address], 09/17/2023 11:58:02 09/17/19 24 09/17/2023 CBC/C OMPLE TE BLD COUNT W/DIF F immature granulocytes 0.4 % 0.00-0 .50 Not Available [facility] (Lab) [address] [place], [address], 09/17/2023 11:58:02 09/17/19 24 09/17/2023 CBC/C OMPLE TE BLD COUNT W/DIF F neutrophils, absolute count 3.95 x10'3 /uL 1.5-8. 0 Not Available [facility] (Lab) [address] [place], [address], 09/17/2023 11:58:02 09/17/19 24 09/17/2023 CBC/C OMPLE TE BLD COUNT W/DIF F lymphocytes, absolute count 2.22 x10'3 /uL 1.07-3 .43 Not Available [facility] (Lab) [address] [place], [address], 09/17/2023 11:58:02 09/17/19 24 09/17/2023 CBC/C OMPLE TE BLD COUNT W/DIF F monocytes, absolute count 0.56 x10'3 /uL 0.29-0 .99 Not Available [facility] (Lab) [address] [place], [address], 09/17/2023 11:58:02 09/17/19 24 09/17/2023 CBC/C OMPLE TE BLD COUNT W/DIF F eosinophils, absolute count 0.17 x10'3 /uL 0.02-0 .53 Not Available [facility] (Lab) [address] [place], [address], 09/17/2023 11:58:02 09/17/19 24 09/17/2023 CBC/C OMPLE TE BLD COUNT W/DIF F basophils, absolute count 0.03 x10'3 /uL 0.01-0 .08 Not Available [facility] (Lab) [address] [place], [address], 09/17/2023 11:58:02 09/17/19 24 09/17/2023 CBC/C OMPLE TE BLD COUNT W/DIF F immature granulocytes ,absolute 0.03 x10'3 /uL 0.00-0 .05 Not Available [facility] (Lab) [address] [place], [address], 09/17/2023 11:58:02 09/17/19 24 09/17/2023 CBC/C OMPLE TE BLD COUNT W/DIF F nucleated red blood cells 0.0 % -0 Not Available [facility] (Lab) [address] [place], [address], 09/17/2023 11:58:02 09/17/19 24 09/17/2023 CBC/C OMPLE TE BLD COUNT W/DIF F NRBC# 0.00 x10'3 /uL Not Available [facility] (Lab) [address] [place], [address], 09/17/2023 11:58:02 09/17/19 24 09/17/2023 LIPID PANEL cholesterol 123 mg/dL 140-19 9 low NIH STEVE NSUS RECOM MENDA TION FOR FABIO STERO L: ADULT CHILD LOW RISK: <200 <170 BORDE RLINE : <200- 239 ----- HIGH RISK: >240 >200 Not Available [facility] (Lab) [address] [place], [address], 09/17/2023 12:08:14 09/17/19 24 09/17/2023 LIPID PANEL triglyceride s 130 mg/dL 0-150 NIH STEVE NSUS REPOR T RECOM MENDA TION FOR TRIGL YCERI TIFFANIE: ADULT CHILD LOW RISK: <150 ----- BODER LINE: 150-1 99 ----- HIGH RISK: >200 ----- Not Available [facility] (Lab) [address] [place], [address], 09/17/2023 12:08:14 09/17/19 24 09/17/2023 LIPID PANEL HDL cholesterol 31 mg/dL 40- low Not Available [facility] (Lab) [address] [place], [address], 09/17/2023 12:08:14 09/17/19 24 09/17/2023 LIPID PANEL LDL cholesterol, calculated 66 mg/dL 0-130 NIH STEVE NSUS REPOR T RECOM MENDA TIONS FOR LDL: ADULT CHILD LOW RISK <130 <110 (OPTI MAL LDL) <100 ----- BORDE RLINE : 130-1 59 ----- HIGH RISK: >160 >130 A TRIGL YCERI DE RESUL T >400 INVAL IDATE S THE CALCU LATIO N FOR LDL FRACT IONAT ION - THE LDL RESUL T WILL NOT BE REPOR MARKIE. Not Available [facility] (Lab) [address] [place], [address], 09/17/2023 12:08:14 09/17/19 24 09/17/2023 COMPR EHENS SB METAB OLIC PANEL sodium 135 mmol/ L 137-14 5 low Not Available [facility] (Lab) [address] [place], [address], 09/17/2023 12:08:24 09/17/19 24 09/17/2023 COMPR EHENS SB METAB OLIC PANEL potassium 4.3 mmol/ L 3.5-5. 1 Not Available [facility] (Lab) [address] [place], [address], 09/17/2023 12:08:24 09/17/19 24 09/17/2023 COMPR EHENS SB METAB OLIC PANEL chloride 102 mmol/ L 98-107 Not Available [facility] (Lab) [address] [place], [address], 09/17/2023 12:08:24 09/17/19 24 09/17/2023 COMPR EHENS SB METAB OLIC PANEL carbon dioxide 23 mmol/ L 22-30 Not Available [facility] (Lab) [address] [place], [address], 09/17/2023 12:08:24 09/17/19 24 09/17/2023 COMPR EHENS SB METAB OLIC PANEL anion gap 14.3 mmol/ L 14-22 Not Available [facility] (Lab) [address] [place], [address], 09/17/2023 12:08:24 09/17/19 24 09/17/2023 COMPR EHENS SB METAB OLIC PANEL glucose 92 mg/dL 70-99 Not Available [facility] (Lab) [address] [place], [address], 09/17/2023 12:08:24 09/17/19 24 09/17/2023 COMPR EHENS SB METAB OLIC PANEL BUN 20 mg/dL 8-19 high Not Available [facility] (Lab) [address] [place], [address], 09/17/2023 12:08:24 09/17/19 24 09/17/2023 COMPR EHENS SB METAB OLIC PANEL creatinine 0.90 mg/dL 0.66-1 .25 Not Available [facility] (Lab) [address] [place], [address], 09/17/2023 12:08:24 09/17/19 24 09/17/2023 COMPR EHENS SB METAB OLIC PANEL GFR >60 Refer ence Range : [place] ge GFR Healt hy Adult : >60 mL/mi n/1.7 3 m2 Chron ic Kidne y Disea se: 15-60 mL/mi n/1.7 3 m2 Kidne y Failu re: <15/m L/min /1.73 m2 www.n iddk. nih.g ov The MDRD study equat ion has not been valid ated in child bing <18 years of age; pregn ant women ; the elder ly >85 years of age; or in some racia l or ethni c subgr oups, such as Hisnj nics. Outsi de the valid ated justino eters , estim ated GFR is less accur ate, requi ring clini noam judgm ent on a case- by-ca se basis . Clini noam inter preta tion for other races and ages must be made by the clini marty. The MDRD study equat ion has not been valid ated for the evalu ation of serum creat inine relat ed to nutri tc l statu s or medic ation usage . For perso ns <18 years of age, a pedia tric GFR calcu lator is avail able on the [facility] websi te: https ://nicanor alberto.dereck sims.o rg/pr ofess ional s/kdo qi/gf r_cal culat or Not Available [facility] (Lab) [address] [place], [address], 09/17/2023 12:08:24 09/17/19 24 09/17/2023 COMPR EHENS SB METAB OLIC PANEL alkaline phosphatase 68 U/L 38-126 Not Available [facility] (Lab) [address] [place], [address], 09/17/2023 12:08:24 09/17/19 24 09/17/2023 COMPR EHENS SB METAB OLIC PANEL alanine aminotransfe rase 28 U/L 0-50 Not Available [facility] (Lab) [address] [place], [address], 09/17/2023 12:08:24 09/17/19 24 09/17/2023 COMPR EHENS SB METAB OLIC PANEL aspartate aminotransfe rase 42 U/L 15-46 Not Available [facility] (Lab) [address] [place], [address], 09/17/2023 12:08:24 09/17/19 24 09/17/2023 COMPR EHENS SB METAB OLIC PANEL bilirubin, total 1.40 mg/dL 0.20-1 .30 high Not Available [facility] (Lab) [address] [place], [address], 09/17/2023 12:08:24 09/17/19 24 09/17/2023 COMPR EHENS SB METAB OLIC PANEL calcium 9.3 mg/dL 8.4-10 .2 Not Available [facility] (Lab) [address] [place], [address], 09/17/2023 12:08:24 09/17/19 24 09/17/2023 COMPR EHENS SB METAB OLIC PANEL total protein 7.3 g/dL 6.3-8. 2 Not Available [facility] (Lab) [address] [place], [address], 09/17/2023 12:08:24 09/17/19 24 09/17/2023 COMPR EHENS SB METAB OLIC PANEL albumin 4.6 g/dL 3.4-5. 0 Not Available [facility] (Lab) [address] [place], [address], 09/17/2023 12:08:24 09/17/19 24 09/17/2023 COMPR EHENS SB METAB OLIC PANEL globulin 2.7 g/dL 2.6-4. 2 Not Available [facility] (Lab) [address] [place], [address], 09/17/2023 12:08:24 09/17/19 24 09/17/2023 COMPR EHENS SB METAB OLIC PANEL A/G ratio 1.7 ratio 1.0-2. 0 Not Available [facility] (Lab) [address] [place], [address], 09/17/2023 12:08:24 09/17/19 24 09/17/2023 VITAM IN D 25-HY DROXY [id number] 44.2 NG/mL 30-100 Vitam in D Statu s: Defic ient: <20 ng/mL Insuf ficie nt: 20-29 ng/mL Suffi cient : 30-10 0 ng/mL Not Available [facility] (Lab) [address] [place], [address], 09/17/2023 12:27:13 09/17/19 24 09/17/2023 TSH W/REF TRACIE FT4 TSH with reflex free T4 1.900 uIU/m L 0.465- 4.680 Not Available [facility] (Lab) [address] [place], [address], 09/17/2023 12:38:49 07/14/[address], coron francisco calci um score No observ ation record ed. [email or web address] [facility] [address], [place], [address], 02/08/2024 09:54:06 07/20/19 24 07/20/2023 sleep study , diagn ostic (PROC ) No observ ation record ed. [email or web address] [facility] [address], [place], [address], 02/08/2024 09:54:40 10/07/19 24 10/07/2023 US, abdom en, limit ed [facility] [address], [place] [address] Patien t Name: ELODN CROSS OPHER Access ion #: [id number] Sex: M : 1970 8 Dictat ed By: Dante Brown ms Attend ing Physic kelli: HERSON JOE WHITE Orderi Physic kelli: HERSON WHITEJOE Exam Date: 2023 07:35 AM Exam Name: US ABDOME N SINGLE ORGAN Admitt ing Diagno sis(es ): EXAM: US ABDOME N SINGLE ORGAN INDICA TION: Hyperb ilirub inemia . TECHNI QUE: Multip le real-t deondre sonogr aphic images were obtain ed of the right upper quadra nt. COMPAR OLIVER: None. FINDIN GS: The liver is echoge pancho consis tent with steato sis. The liver measur es 22.2 cm in length . There is hepato pedal color dopple r flow in the main portal vein. There is no intrah epatic biliar y ductal dilata tion. The gallbl adder is withou t eviden ce of stone or sludge . The gallbl adder wall measur es 0.2 cm. The common bile duct measur es 0.4 cm. There is a negati ve sonogr aphic Rueda 's sign. The right kidney measur es 16.0 cm. The right kidney is normal in contou r, size, and shape. The echoge nicity is normal . There is no hydron ephros is. There is a cyst which measur es 5.4 x 4.9 x 5.2 cm. The pancre as is not well visual ized due to overly ing bowel gas. Visual ized portio ns of the aorta and inferi or vena cava are unrema rkable . No eviden ce of ascite s. IMPRES CATHI: 1. Hepato megaly and hepati c steato sis. 2. Right renal cyst. Page 1 [facility] [address] [facility] [address], [place] [address] [phone] Patien t Name: ELDON CROSS OPHER Access ion #: [id number] Sex: M : 1970 8 Dictat ed By: Dante Brown ms Attend ing Physic kelli: HERSON MAGALLON Physic kelli: JOE PADRON Exam Date: 2023 07:35 AM Exam Name: US ABDOME N SINGLE ORGAN Admitt ing Diagno sis(es ): Electr onical ly Signed by: Dante Brown ms at 2023 08:52: 56 AM Page 2 [facility] (Imaging) [address] [place], [address], 02/16/2024 15:15:25 10/07/19 24 10/07/2023 CT, chest , w/o contr ast [facility] [address] [id number] [phone] Patien t Name: ELDON CROSS [facility] ion #: [id number] Sex: M : 1970 8 Dictat ed By: Daniel Solo Attend ing Physic kelli: JOE PADRON Physic kelli: JOE PADRON Exam Date: 2023 08:07 AM Exam Name: CT CHEST WO Admitt ing Diagno sis(es ): CT Chest withou t intrav enous contra st INDICA TION: Chroni c cough TECHNI QUE: Multid etecto r spiral CT of the chest was perfor med from the lung apices to the upper abdome n. Axial, strickland l and sagitt al multip lanar reform ats were perfor med. Radiat ion Dose : 1. Chest: CTDI volume is 14 mGy. Dose-l ength produc t is 618.5 mGy*cm The dose indica tors for CT are the volume Comput ed Tomogr aphy (CT) Dose Index (CTDIv ol) and the Dose Length Produc t (DLP), and are measur ed in units of mGy and mGy-cm , respec tively . These indica tors are not patien t dose, but values genera markie from the CT scanne r acquis ition factor s. The report includ es radiat ion exposu re data for exposu res receiv ed during this examin ation. Compar oliver: 2022 Findin gs: Lower neck: Normal thyroi d. Lungs: No focal consol idatio n, pleura l effusi on or pneumo thorax . Heart/ Vascul ar Struct ures: Cardio megaly . Strickland ry artery calcif icatio ns. Vascul ar calcif icatio ns of the aorta. Lymph Nodes: No adenop athy Pleura : No pleura l effusi on or signif icant pneumo thorax . Page 1 [facility] [address] [address] Patien t Name: ELDON CROSS Access ion #: [id number] Sex: M : 1970 8 Dictat ed By: Daniel baum Solo Attend ing Physic kelli: HERSON MAGALLON [facility] Physic kelli: JOE PADRON Exam Date: 2023 08:07 AM Exam Name: CT CHEST WO Admitt ing Diagno sis(es ): Muscul oskele delvin: No acute osseou s abnorm ality. Soft tissue s: Normal . Upper abdome n: Spleno megaly . Hepati c steato sis. Right upper lobe cyst measur es 5.7 cm. Modera te hiatal hernia . IMPRES CATHI: No acute or suspic ious thorac ic findin gs. Previo usly seen left adrena l mass is not visual ized on curren t exam. Radiat ion optimi zation : All CT scans at this facili ty use at least one of these dose optimi zation techni ques: automa markie exposu re contro l mA and/or kV adjust ment per patien t size (inclu tiffanie target ed exams where dose is matche d to clinic al indica tion) or iterat sb recons tructi on. Electr onical ly Signed by: Daniel Solo at 2023 10:25: 34 AM Page 2 [email or web address] [facility] ([facility]) [address] [place], [address], 02/16/2024 15:15:25 Result Notes None recorded. Problems Name Problem SNOMED Code Status Onset Date Resolution Date Notes Provider Name and Address Organization Details Recorded Time Insomnia 868183988 Active Not Available [facility] 3 22:44:39 Tremor 35760353 Active Not Available [facility] 3 22:44:39 Obese 440778136 Completed Not Available [facility] 3 22:44:39 Hyperlipi demia 51992422 Active 2021 Not Available [facility] 3 22:44:39 Hemorrhoi ds 49018496 Active Not Available [facility] 3 22:44:39 Erectile dysfuncti on 432367598 Active 2022 Fela baum MD [address] [facility], [facility], [place], [address] , [employer] [facility] 3 09:16:47 Smoker 03390767 Active 2022 Fela baum MD [address] [facility], [facility], [place], [address] , [email or web address] 3 09:18:22 Vitamin D deficienc y 61032447 Active 2022 Fela baum MD [address] [facility], [facility], [place], [address] , [email or web address] 3 09:19:33 Chronic cough 26643745 Active 2022 Fela baum MD [address] [facility], [facility], [place], [address] , [email or web address] 3 09:46:11 Mass of left adrenal gland [id number] 450371 Active 2022 Aline whitaker, [facility] 3 15:42:44 Lesion of thoracic spine 823381836 Active 2022 Aline whitaker, [facility] 3 12:15:51 Hypercalc emia 88837597 Active 2022 Aline whitaker, [facility] 3 15:45:37 Obstructi ve sleep apnea syndrome [id number] Active 2023 Fela baum MD [address], [place], [address] , [facility] 4 19:08:06 Hyperbili rubinemia 35542766 Active 2023 Fela baum MD [address], [place], [address] , [facility] 4 09:56:01 Hepatomeg anan 83828798 Active 2023 Fela baum MD [address], [place], [address] , [facility] 4 09:50:08 Blister of hand without infection 93417895 Active 2023 Fela baum MD [address], [place], [address] , [facility] 4 10:13:06 Problem Notes None recorded. Procedures Surgical History Date Name Laterality Status Provider Name and Address Organization Details Recorded Time 11/20/19 adrenalectomy completed ADRIAN Carlson [facility] 12/30/2022 09:29:42 tonsilectomy/kasie oids completed Not Available [facility] 07/02/2022 22:43:08 Colonoscopy completed Not Available [facility] 07/02/2022 22:43:08 Imaging Results Imaging Date Name Status LastModified by [facility] Details LastModified Time 2023 CT, coronary calcium score completed [address] [facility] [address] [facility] [address], [place], [address], 02/08/2024 09:54:06 07/20/2023 sleep study, diagnostic (PROC) completed [address] [facility] [address], [place], [address], 02/08/2024 09:54:40 10/07/2023 US, abdomen, limited completed [address] (Imaging) [address] [place], [address], 02/16/2024 15:15:25 10/07/2023 CT, chest, w/o contrast completed [address] (Imaging) [address] [place], [address], 02/16/2024 15:15:25 Procedure Notes None recorded. Medical Equipment None Reported. Allergies No known drug allergies Medications Name Sig Start Date Stop Date Status Note LastModified by Organization Details LastModified Time amoxicillin 500 mg capsule TAKE 1 CAPSULE BY MOUTH EVERY 8 HOURS UNTIL ALL TAKEN 01/28 completed Not Available Not Available Not Available atorvastati n 40 mg tablet TAKE 1 TABLET BY MOUTH EVERY DAY active Not Available Not Available No t Available aspirin 81 mg tablet,[facility] yed release Take 1 tablet every day by oral route. active Not Available Not Available No t Available ergocalcife rol (vitamin D2) 1,250 mcg (50,000 unit) capsule TAKE 1 CAPSULE BY MOUTH WEEKLY FOR 8 WEEKS active Not Available Not Available No t Available nicotine 21mg/24hr-1 4mg/24hr-7m g/24hr daily transderm patches,seq uentl Apply 1 package every day by transderm al route. 08/01 completed Not Available Not Available Not Available atorvastati n 1 PO QD 01/31 completed Not Available Not Available Not Available ergocalcife rol (vitamin D2) 1 PO Weekly 01/31 completed Not Available Not Available Not Available multivitami n 1 PO QD 2020 active Not Available Not Available Not Avai lable cholecalcif trang (vitamin D3) 1,250 mcg (50,000 unit) capsule TAKE 1 CAPSULE BY MOUTH EVERY WEEK 10/14 completed Not Available Not Available Not Available Allergy active Not Available Not Avail able Not Available Sutab 1.479-0.188 -0.225 gram tablet TAKE DIRECTED 10/30 completed Not Available Not Available Not Available Vitals Date Recorded Body height Body mass index (BMI) Body weight Body temperature Heart rate Systolic blood pressure Diastolic blood pressure Provider Name and Address Organization Details Last Updated DateTime 3 182.88 cm 39.7 kg/m2 608480. 56 g 97.6 [degF] 84 /min 122 mm[Hg] 80 mm[Hg] Rossi Nunez Pat [place] [employer] [facility] [employer] 3 09:31:20 Date Recorded Body height Body mass index (BMI) Body weight Body temperature Heart rate Systolic blood pressure Diastolic blood pressure Provider Name and Address Organization Details Last Updated DateTime 3 182.88 cm 38.7 kg/m2 717470. 83 g 97.3 [degF] 84 /min 114 mm[Hg] 70 mm[Hg] Rossi Nunez Pat [place] [employer] [facility] [employer] 3 09:31:29 Date Recorded Body height Body mass index (BMI) Body weight Body temperature Heart rate Systolic blood pressure Diastolic blood pressure Provider Name and Address Organization Details Last Updated DateTime 3 182.88 cm 38.7 kg/m2 485436. 83 g 97.3 [degF] 78 /min 110 mm[Hg] 70 mm[Hg] Rossi Nunez Pat [facility] [employer] 3 09:24:27 Date Recorded Body height Body mass index (BMI) Body weight Body temperature Heart rate Oxygen saturation Oxygen saturation in Arterial blood by Pulse oximetry Systolic blood pressure Diastolic blood pressure Provider Name and Address Organization Details Last Updated DateTime 4 182.88 cm 39.5 kg/m2 451027. 38 g 99 [degF] 107 /min 98 % 98 % 118 mm[Hg] 84 mm[Hg] Toya Cowart MA [facility] 4 09:41:30 Date Recorded Body height Body mass index (BMI) Body weight Body temperature Heart rate Systolic blood pressure Diastolic blood pressure Provider Name and Address Organization Details Last Updated DateTime 4 182.88 cm 39.9 kg/m2 805801. 16 g 97.9 [degF] 90 /min 120 mm[Hg] 74 mm[Hg] Rossi Mayra, [facility] [place] [facility] [place] [facility] 4 09:43:01 Social History Question Answer Notes LastModified by Organization Details LastModified Time Tobacco Smoking Status Former Smoker quit 11/2021 Not Available [facility] 07/02/2022 22:42:53 Do You Have An Advance Directive? No MIGRATION.0301 [id number] Information not available 07/02/2022 What Is Your Level Of Alcohol Consumption? None Quit [id number] MIGRATION.0301 017128 Information not available 07/02/2022 Do You Wear A Helmet When Biking? Yes MIGRATION.030 331509 Information not available 07/02/2022 What Is Your Level Of Caffeine Consumption? Heavy Coffee And Tea MIGRATION.030 706197 Information not available 07/02/2022 How Much Tobacco Do You Chew? None MIGRATION.0301 446993 Information not available 07/02/2022 In The 14 Days Before Symptom Onset, Have You Had Close Contact With A Laboratory-confi rmed COVID-19 While That Case Was Ill? No MIGRATION.0301 [id number] Information not available 07/02/2022 In The 14 Days Before Symptom Onset, Have You Had Close Contact With A Person Who Is Under Investigation For COVID-19 While That Person Was Ill? No MIGRATION.030 627512 Information not available 07/02/2022 Are You Currently Employed? Yes Information not available 12/30/2022 What Type Of Diet Are You Following? REGULAR Limiting Red Meat And Eating More Fish, Eats Fruits, Cut Out Natural Sugar MIGRATION.0301 [id number] Information not available 07/02/2022 Which Illicit Or Recreational Drugs Have You Used? None MIGRATION.0301 157862 Information not available 07/02/2022 Do You Or Have You Ever Used E-cigarettes Or Vape? Current User Of Electronic Cigarettes MIGRATION.0301 131906 Information not available 07/02/2022 What Is The Highest Grade Or Level Of School You Have Completed Or The Highest Degree You Have Received? 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 No MIGRATION.030 144186 Information not available 07/02/2022 What Is The Fluoride Status Of Your Home? Unknown MIGRATION.0301 482005 Information not available 07/02/2022 When Did You Quit Smoking? 1-5yearssincelast cigarette MIGRATION.030 887559 Information not available 07/02/2022 Are There Any Guns Present In Your Home? Yes MIGRATION.0301 609161 Information not available 07/02/2022 Do You Use Insect Repellent Routinely? Yes MIGRATION.0301 137128 Information not available 07/02/2022 Where Do You Live? [facility] MIGRATION.0301 558729 Information not available 07/02/2022 Do You Have A Medical Power Of Windows Infrastructure Engineer? No MIGRATION.0301 578876 Information not available 07/02/2022 What Was The Date Of Your Most Recent Tobacco Screening? 03/22/2024 Information not available 03/22/2024 Do You Have Any Pets? No MIGRATION.0301 [id number] Information not available 07/02/2022 What Is Your Relationship Status? Single MIGRATION.0301 727696 Information not available 07/02/2022 Do You Use Your Seat Belt Or Car Seat Routinely? Yes MIGRATION.0301 805621 Information not available 07/02/2022 Do You Have Smoke And Carbon Monoxide Detectors In Your Home? Yes MIGRATION.0301 148000 Information not available 07/02/2022 At What Age Did You Start Smoking Tobacco? 20 MIGRATION.0301 [id number] Information not available 07/02/2022 Are You Passively Exposed To Smoke? No MIGRATION.0301 014233 Information not available 07/02/2022 Do You Or Have You Ever Used Smokeless Tobacco? Never Used Smokeless Tobacco MIGRATION.0301 014988 Information not available 07/02/2022 Are There Any Smokers In Your House? No MIGRATION.0301 889669 Information not available 07/02/2022 How Much Tobacco Do You Smoke? No Was 2 Ppd MIGRATION.0301 885217 Information not available 07/02/2022 Do You Feel Stressed (tense, Restless, Nervous, Or Anxious, Or Unable To Sleep At Night)? [id number] MIGRATION.300 278615 Information not available 07/02/2022 Do You Use Any Illicit Or Recreational Drugs? No MIGRATION.030 588760 Information not available 07/02/2022 Do You Use Sunscreen Routinely? Yes MIGRATION.030 848554 Information not available 07/02/2022 Have You Recently Traveled Abroad? No MIGRATION.030 509739 Information not available 07/02/2022 Do You Have Any Dietary Restrictions? No MIGRATION.030 569271 Information not available 07/02/2022 Do You Or Have You Ever Used Any Other Forms Of Tobacco Or Nicotine? Yes MIGRATION.300026 Information not available 07/02/2022 Sex: Male Functional Status Question Answer Note LastModified by [employer] Details LastModified Time What is your exercise level? Moderate on feet a lot at work MIGRATION.[id number] 26 Information not available 07/02/2022 Mental Status None recorded. Family History Relationship Description Onset Age of this Age Resolved Age Notes LastModified by Organization Details LastModified Time Father Malignant tumor of lung MIGRATION.334 [id number] Not available 07/02/2022 22:43:11 Father Hypertensive disorder MIGRATION.730 [id number] Not available 07/02/2022 22:43:11 Mother Malignant tumor of breast MIGRATION.318 [id number] Not available 07/02/2022 22:43:11 Mother Diabetes mellitus MIGRATION.589 [id number] Not available 07/02/2022 22:43:11 Paternal Grandfather Carcinoma of prostate MIGRATION.236 [id number] Not available 07/02/2022 22:43:11 Brother Diabetes mellitus MIGRATION.703 [id number] Not available 07/02/2022 22:43:11 Medical History Condition Response NERVE DISEASE Y BLINDNESS N RHEUMATIC FEVER N KIDNEY STONES N BLADDER PROBLEMS N MRSA N OTHER # 1 N POLIO N LUNG DISEASE/DISORDER N HISTORY OF DRUG ABUSE N RADIATION / CHEMOTHERAPY N COPD N Other # 2 N BLOOD DISEASES N EAR OR HEARING PROBLEMS N MUMPS N SHINGLES N BOWEL PROBLEMS N DEPRESSION (INCLUDING POST ) N STROKE/TIA N ULCERS N BENIGN PROSTATIC HYPERPLASIA N MEASLES N HYPOTENSION N MYOCARDIAL INFARCTION N OBESITY Y GERD/NAUSEA N ANEURYSM N URINARY/BLADDER/KIDNEY PROBLEMS N CORONARY ARTERY DISEASE (CAD) N ADDICTION CONCERNS N ENDOMETRIOSIS N Impotence N USE OF BLOOD THINNERS N SKIN PROBLEMS N GASTROINTESTINAL DISORDER N PERIPHERAL VASCULAR DISEASE N MUSCLE,JOINT OR BONE PROBLEMS N GASTROINTESTINAL BLEEDING N BLOOD CLOTS N ASTHMA N CATARACTS N ERECTILE DYSFUNCTION N VARICOSITIES N GI PROBLEMS N Low Testosterone N INFERTILITY N AIDS/HIV N CHEMOTHERAPY / RADIATION N LIVER DISEASE N MALE HYPOGONADISM N HYPERTENSION N Deficiency Y TOURETTE'S N ANXIETY DISORDER N BLOOD TRANSFUSION N ANEMIA/BLOOD DISORDER N CHRONIC EAR INFECTIONS N BRONCHITIS N TUBERCULOSIS N GLAUCOMA N FOOT PROBLEM N DIVERTICULITIS N CHICKENPOX N SLEEP APNEA N INFECTIOUS DISEASE N HEART ARRHYTHMIA N PROSTATE N INSOMNIA Y HIGH CHOLESTEROL / HYPERLIPIDEMIA Y HYPERTHYROIDISM N EYE PROBLEMS N EDEMA N CHRONIC PAIN SYNDROME N HYPOTHYROIDISM N CAROTID BLOCKAGE N CONSTIPATION N BACK / NECK PROBLEMS N ATHEROSCLEROSIS N BREAST PROBLEMS N DIALYSIS N ECZEMA N OSTEOPOROSIS N ARTHRITIS N APPENDICITIS N DIABETES, TYPE N BAD TEETH N ENT N HEARTBURN / REFLUX N AUTISM SPECTRUM DISORDER (ASD) N HEPATITIS / LIVER DISEASE N GOUT N SLEEP DISORDER N ALZHEIMER'S DISEASE N Brain Problems N HERPES N DEMENTIA N HEADACHES/MIGRAINES N SEIZURES/EPILEPSY N VASCULAR DISEASE N PACEMAKER N Blood Disorder N DIZZINESS N HEART DISEASE/HEART PROBLEMS N KIDNEY DISEASE N MULTIPLE SCLEROSIS N CARDIAC ARRHYTHMIA N CANCER: SPECIFY N ATRIAL FIBRILLATION N Gall Stones N PULMONARY EMBOLISM N AUTOIMMUNE DISEASE N Immunizations Vaccine Type Date Status Note Provider Nam e and Address Organization Details Recorded Time COVID-19, mRNA, LNP-S, PF, 100 mcg/0.5mL dose or 50 mcg/0.25mL dose 1 completed Not Available [facility] 07/02/2022 22:45:48 Influenza, split virus, trivalent, preservative 1 completed Not Available [facility] 07/02/2022 22:45:48 Influenza, split virus, quadrivalent, preservative 0 completed Not Available [facility] 07/02/2022 22:45:48 Influenza, split virus, trivalent, PF 4 completed Fela Pelayo MD [address] [place] [address], [facility] [address] [address], [place], [address], [facility] [employer] 03/22/2024 18:15:49 Past Encounters Encounter ID Performer Location Encounter Start Date Encounter Closed Date Diagnosis/Indication Diagnosis SNOMED-CT Code Diagnosis ICD10 Code Diagnosis Note [id number] [facility] [address] [place] [address] 1 07/25/2020 00:00:00 01/02/2021 15:41:21 [id number] _ATHENA_M IGRATION_ DEFAULT_1 _1 , 09/12/2020 00:00:00 09/12/2020 10:46:59 [id number] [facility] [address] [place] [address] 1 01/31/2021 00:00:00 01/31/2021 09:51:17 [id number] [facility] [address] [place] [address] 1 08/01/2021 00:00:00 08/01/2021 09:34:55 [id number] [facility] [address] [place] [address] 1 01/28/2022 00:00:00 01/28/2022 11:27:49 [id number] Fela baum MD [facility] [address] [address] 07/15/2022 09:27:08 07/15/2022 10:16:05 Screening - NAD 825532792 Z13.9 C-scope: 10/29/2020 : Dr Murrieta, tubular adenoma Get yearly flu shotTdap 07/25/2020 UTD on COVID 19 vaccine RTC in 4 monthsDo labsER if worseHe did verbalize his understand ing of the above Smoker 95273477 F17.200 1.5 to 2 PPD for approx 30 yearsAdvis ed to quit!Denie s any complaints Erectile dysfunction 860 196603 F52.21 Does wellTestos WNL Hyperlipidemia 25208494 E78.5 Used to be on atorvastat in 40mg daily, renewed 07/15/2022 Does wellGet labs Tremor 07401544 R25.1 Very fine essential tremor, he does not have any issues with his IDL or IADLs and states that his tremors occur when he has coffee which he did today Does wellDoes not want any referrals or meds Screening for malignant neoplasm of prostate 577788297 Z12.5 Vitamin D deficiency 347 87743 E55.9 Chronic cough 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, has noted a dry cough and feels some GARAY, no wheezing or chest painGet a CT chest, may need to see pulmonary and get PFTs too [id number] Fela baum MD [facility] [address] [facility], [address] [place] [address] 09/02/2022 09:28:13 09/02/2022 10:00:17 Screening - NAD 184712212 Z13.9 C-scope: 10/29/2020 : Dr Murrieta, tubular adenoma Get yearly flu shotTdap 07/25/2020 UTD on COVID 19 vaccine RTC in 4 monthsDo labsER if worseHe did verbalize his understand ing of the above Smoker 73705148 F17.200 1.5 to 2 PPD for approx 30 yearsAdvis ed to quit!Denie s any complaints Erectile dysfunction 860 956424 F52.21 Does wellTestos WNL Hyperlipidemia 41011986 E78.5 Used to be on atorvastat in 40mg daily, renewed 07/15/2022 Does wellGet labs Tremor 19055416 R25.1 Very fine essential tremor, he does not have any issues with his IDL or IADLs and states that his tremors occur when he has coffee which he did today Does wellDoes not want any referrals or meds Screening for malignant neoplasm of prostate 228553357 Z12.5 Vitamin D deficiency 347 57085 E55.9 Chronic cough 98550718 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, has noted a dry cough and feels some GARAY, no wheezing or chest painGet a CT chest, may need to see pulmonary and get PFTs too CT Chest 07/24/2022 Mass of le ft adrenal gland 6521295079 8294869 E27.[address] 08/12/2022 MRI T spine 08/20/2022 Dr Whyte 08/01/2022 , now referred to a urologist Dr Lyman as per his history Adult heal th examination 063923090 Z00.00 Depression screening 171 155090 Z13.31 [id number] Fela baum MD [facility] [place] [address] [facility], [facility] [place] [address] [place] [address] 10/14/2022 09:20:52 10/14/2022 09:52:58 Screening - NAD 157262556 Z13.9 C-scope: 10/29/2020 : Dr Murrieta, tubular adenoma Get yearly flu shotTdap 07/25/2020 UTD on COVID 19 vaccine RTC in 4 monthsDo labsER if worseHe did verbalize his understand ing of the above Smoker 44679379 F17.200 1.5 to 2 PPD for approx 30 years, he does state that he has quit smoking now, 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!Denie s any complaints Erectile dysfunction 860 466929 F52.21 Does wellTestos WNL Hyperlipidemia 70957336 E78.5 Used to be on atorvastat in 40mg daily, renewed 07/15/2022 Does wellGet labs Tremor 92253686 R25.1 Very fine essential tremor, he does not have any issues with his IDL or IADLs and states that his tremors occur when he has coffee which he did today Does wellDoes not want any referrals or meds Screening for malignant neoplasm of prostate 655042985 Z12.5 Vitamin D deficiency 347 54297 E55.9 Chronic cough 28577090 R 05.3 detention smoker, has noted a dry cough and feels some GARAY, no wheezing or chest painGet a CT chest, may need to see pulmonary and get PFTs too CT Chest 07/24/[address] Whyte Mass of le ft adrenal gland 4620706356 3165280 E27.[address] 08/12/2022 MRI T spine 08/20/2022 Dr Whyte 08/01/2022 , now referred to a urologist Dr Lyman as per his historyDr Whyte 10/08/2022 Dr Lyman 09/04/2022 , now to get surgery for the adrenal mass on 11/19/2022 [id number] Fela baum MD [facility] [place] [address] [place] [address] 12/30/2022 09:21:48 12/30/2022 09:51:52 Screening - NAD 746519650 Z13.9 C-scope: 10/29/2020 : Dr Murrieta, tubular adenoma Get yearly flu shotTdap 07/25/2020 UTD on COVID 19 vaccine RTC in 4 monthsDo labsER if worseHe did verbalize his understand ing of the above Smoker 87294499 F17.200 1.5 to 2 PPD for approx 30 years, he does state that he has quit smoking now, 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!Denie s any complaints Erectile dysfunction 860 058798 F52.21 Does wellTestos WNL Hyperlipidemia 08583314 E78.5 On atorvastat in 40mg daily, renewed 07/15/2022 Does wellGet labs Tremor 11932033 R25.1 Very fine essential tremor, he does not have any issues with his IDL or IADLs and states that his tremors occur when he has coffee which he did today Does wellDoes not want any referrals or meds Vitamin D deficiency 347 36587 E55.9 Chronic cough 60805971 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, has noted a dry cough and feels some GARAY, no wheezing or chest painGet a CT chest, may need to see pulmonary and get PFTs too CT Chest 07/24/[address] Whyte Mass of le ft adrenal gland 5361531707 4969237 E27.[address] 08/12/2022 MRI T spine 08/20/2022 Dr Whyte 08/01/2022 , now referred to a urologist Dr Lyman as per his historyDr Whyte 10/08/2022 Dr Lyman 09/04/2022 , now to get surgery for the adrenal mass on 11/19/2022 Dr Whyte 12/08/2022 , s/p surgery, f/u in 3 months [id number] Fela baum MD [facility] [place] [address] [facility] [address] [address] [place] [address] 04/23/2023 09:15:57 04/23/2023 09:42:13 Screening - NAD 350984917 Z13.9 C-scope: 10/29/2020 : Dr Murrieta, tubular adenoma Get yearly flu shotTdap 07/25/2020 UTD on COVID 19 vaccineCan do shingrix vaccine RTC in 4 monthsDo labsER if worseHe did verbalize his understand ing of the above Smoker 83113547 F17.200 1.5 to 2 PPD for approx 30 years, he does state that he has quit smoking now, 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!Denie s any complaints Erectile dysfunction 860 877733 F52.21 Does wellTestos WNL Hyperlipidemia 53670734 E78.5 On atorvastat in 40mg daily, renewed 07/15/2022 Does wellGet labs Tremor 58418433 R25.1 Very fine essential tremor, he does not have any issues with his IDL or IADLs and states that his tremors occur when he has coffee which he did today Does wellDoes not want any referrals or meds Vitamin D deficiency 347 37978 E55.9 Chronic cough 34101468 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, has noted a dry cough and feels some GARAY, no wheezing or chest painGet a CT chest, may need to see pulmonary and get PFTs too CT Chest 07/24/[address] Whyte Mass of le ft adrenal gland 8065993556 9858014 E27.[address] 08/12/2022 MRI T spine 08/20/2022 Dr Whyte 08/01/2022 , now referred to a urologist Dr Lyman as per his historyDr Pato 10/08/2022 Dr Lyman 09/04/2022 , now to get surgery for the adrenal mass on 11/19/2022 Dr Whyte 12/08/2022 , s/p surgery, f/u in 3 monthsDr Pato 03/24/2023 , f/u in [address] scan Screening for cardiovascular system disease 355278164 Z13.[address] Cruz [facility] [id number] Fela baum MD [facility] [address] [facility], [address] [place] [address] 09/22/2023 09:27:20 09/22/2023 10:15:53 Screening - NAD 796321252 Z13.9 C-scope: 10/29/2020 : Dr Murrieta, tubular adenoma Get yearly flu shotTdap 07/25/2020 UTD on COVID 19 vaccineCan do shingrix vaccine RTC in 4 monthsDo labsER if worseHe did verbalize his understand ing of the above Smoker 93547538 F17.200 1.5 to 2 PPD for approx 30 years, he does state that he has quit smoking now, 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!Denie s any complaints Erectile dysfunction 860 816642 F52.21 Does wellTestos WNL in the past Hyperlipidemia 15035417 E78.5 On atorvastat in 40mg dailyDoes wellGet labs Tremor 73678772 R25.1 Very fine essential tremor, he does not have any issues with his IDL or IADLs and states that his tremors occur when he has coffee which he did today Does wellDoes not want any referrals or meds Vitamin D deficiency 347 46811 E55.9 Chronic cough 02131389 R 05.3 detention smoker, has noted a dry cough and feels some GARAY, no wheezing or chest painGet a CT chest, may need to see pulmonary and get PFTs too CT Chest 07/24/[address] Whyte Mass of le ft adrenal gland 5477999290 2093177 E27.[address] 08/12/2022 MRI T spine 08/20/2022 Dr Whyte 08/01/2022 , now referred to a urologist Dr Lyman as per his historyDr Pato 10/08/2022 Dr Lyman 09/04/2022 , now to get surgery for the adrenal mass on 11/19/2022 Dr Whyte 12/08/2022 , s/p surgery, f/u in 3 monthsDr Pato 03/24/2023 , f/u in [address] scan As per his history 09/22/2023 , did see Dr Lyman and did have a CT abd on 09/07/2023 Screening for cardiovascular system disease 997261226 Z13.[address] score: [facility] 2023 Dr Cruz [facility] 07/28/2023 : Next apt in 6 months Obstructiv e sleep apnea syndrome 97439845 G47.33 Sleep study 07/20/2023 : Needs to be on CPAPGet a referral to pulmonary Hyperbilirubinemia 39596 006 E80.6 Get US liver [id number] Fela baum MD [facility] [place] [address] [facility], [facility] [place] [address] [place] [address] 03/22/2024 09:31:42 03/22/2024 10:18:58 Screening - NAD 115750122 Z13.9 C-scope: 10/29/2020 : Dr Murrieta, tubular adenoma Get yearly flu shotTdap 07/25/2020 UTD on COVID 19 vaccineCan do shingrix vaccine RTC in 4 monthsDo labsER if worseHe did verbalize his understand ing of the above Smoker 75365489 F17.200 1.5 to 2 PPD for approx 30 years, he does state that he has quit smoking now, 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!Denie s any complaints Erectile dysfunction 860 104148 F52.21 Does wellTestos WNL in the past Hyperlipidemia 38666545 E78.5 On atorvastat in 40mg dailyDoes wellGet labs Tremor 43336867 R25.1 Very fine essential tremor, he does not have any issues with his IDL or IADLs and states that his tremors occur when he has coffee which he did today Does wellDoes not want any referrals or meds Vitamin D deficiency 347 46792 E55.9 Chronic cough 24089769 R 05.3 detention smoker, has noted a dry cough and feels some GARAY, no wheezing or chest painGet a CT chest, may need to see pulmonary and get PFTs too CT Chest 07/24/2022 CT chest 10/07/2023 Did see Dr Whyte Mass of le ft adrenal gland [id number] E27.[address] 08/12/2022 MRI T spine 08/20/2022 Dr Whyte 08/01/2022 , now referred to a urologist Dr Lyman as per his historyDr Whyte 10/08/2022 Dr Lyman 09/04/2022 , now to get surgery for the adrenal mass on 11/19/2022 Dr Whyte 12/08/2022 , s/p surgery, f/u in 3 monthsDr Whyte 03/24/2023 , f/u in [address] scan As per his history 09/22/2023 , did see Dr Lyman and did have a CT abd on 09/07/2023 Screening for cardiovascular system disease 906558742 Z13.[address] score: [facility] 2023 Dr Cruz [facility] 07/28/2023 : Next apt in 6 months Obstructiv e sleep apnea syndrome [id number] G47.33 Sleep study 07/20/2023 : Needs to be on CPAPGet a referral to pulmonary Hyperbilirubinemia 58707 006 E80.6 US liver 10/07/2023 Hepatomegaly [id number] R1 6.0 US liver 10/07/2023 , refer to GI hepatologi st Blister of hand without infection [id number] S60.521A States the blister just appeared 2 days ago, non tender, advised to keep it clean and dry, could be d/t stress as per him Administra tion of influenza vaccine [id number] Z23 Health Concerns Section Related Observation LastModified by Organization Saul taylor LastModified Time None Recorded Concern Status LastModified by Organization Details LastModified Time None Recorded Advance Directives Directive N: Payers Encounter Date Sequence Insurance Name Policy Number Policy Ford Covered Member ID Ford Member ID Guarantor Name 10/14/2022 1 [facility] (O) [id number] Christopher L Stroder [id number] Christopher Stroder 12/30/2022 1 [facility] (O) [id number] Christopher L Stroder [id number] Christopher Stroder 04/23/2023 1 [facility] (O) [id number] Christopher L Stroder [id number] Christopher Stroder 09/22/2023 1 [facility] (O) [id number] Christopher L Stroder [id number] Christopher Stroder 03/22/2024 1 [facility] (O) [id number] Christopher L Stroder [id number] Christopher Stroder Notes Date Note Type Note Provider Name and Address Organization Details Recorded Time 10/14/2022 text/html OV 07/25/2020:Here to establish carePast Hx:SmokerReviewed social family and surgical historyHe is doing well, he would like to get labs and also add labs for STI as he has had multiple sexual partners since the recent pastHe denies any complaintsHe also smokes quite heavily, 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, he also has a history of heavy alcohol use but has abstained from this since the past 4-5 yearsOV 01/31/2021:Here for his f/u aptHe is doing well, states that he has lost 26 pounds with diet and exerciseHe did do the labsOV 08/01/2021:Here for his routine apt and wellnessHe feels wellNo recent labsOV 01/28/2022:Here for his f/u apt, he feels well, he did do the labs OV 07/15/2022:Here for his routine apt, he is doing well, has noted some dry cough, some SOB, feels that he may have put on some weight, states that he does vape and smokes now very rarely but has not entirely quit cigarettes OV 09/02/2022:Here for his f/u apt, he has now seen Dr Whyte and did have a PET CT scan done as well as a MRI of the T spine OV 10/14/2022:Here for his 6 week f/u apt, he feels well today, no recent labs, he is to get adrenal gland surgery Fela Pelayo MD [address] [facility], [facility], [address], [place], [address], [place] [facility] [employer] 10/14/2022 10:36:01 12/30/2022 text/html OV 07/25/2020:Here to establish carePast Hx:SmokerReviewed social family and surgical historyHe is doing well, he would like to get labs and also add labs for STI as he has had multiple sexual partners since the recent pastHe denies any complaintsHe also smokes quite heavily, 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, he also has a history of heavy alcohol use but has abstained from this since the past 4-5 yearsOV 01/31/2021:Here for his f/u aptHe is doing well, states that he has lost 26 pounds with diet and exerciseHe did do the labsOV 08/01/2021:Here for his routine apt and wellnessHe feels wellNo recent labsOV 01/28/2022:Here for his f/u apt, he feels well, he did do the labs OV 07/15/2022:Here for his routine apt, he is doing well, has noted some dry cough, some SOB, feels that he may have put on some weight, states that he does vape and smokes now very rarely but has not entirely quit cigarettes OV 09/02/2022:Here for his f/u apt, he has now seen Dr Whyte and did have a PET CT scan done as well as a MRI of the T spine OV 10/14/2022:Here for his 6 week f/u apt, he feels well today, no recent labs, he is to get adrenal gland surgery OV 12/30/2022: Here for his f/u apt, he is doing very well today, s/p adrenal surgery and he does have f/u with Dr Pato Pelayo MD [address] [place] [address], [address], [place], [address], [place] [facility] [employer] 12/30/2022 10:01:38 04/23/2023 text/html OV 07/25/2020:Here to establish carePast Hx:SmokerReviewed social family and surgical historyHe is doing well, he would like to get labs and also add labs for STI as he has had multiple sexual partners since the recent pastHe denies any complaintsHe also smokes quite heavily, 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, he also has a history of heavy alcohol use but has abstained from this since the past 4-5 yearsOV 01/31/2021:Here for his f/u aptHe is doing well, states that he has lost 26 pounds with diet and exerciseHe did do the labsOV 08/01/2021:Here for his routine apt and wellnessHe feels wellNo recent labsOV 01/28/2022:Here for his f/u apt, he feels well, he did do the labs OV 07/15/2022:Here for his routine apt, he is doing well, has noted some dry cough, some SOB, feels that he may have put on some weight, states that he does vape and smokes now very rarely but has not entirely quit cigarettes OV 09/02/2022:Here for his f/u apt, he has now seen Dr Whyte and did have a PET CT scan done as well as a MRI of the T spine OV 10/14/2022:Here for his 6 week f/u apt, he feels well today, no recent labs, he is to get adrenal gland surgery OV 12/30/2022: Here for his f/u apt, he is doing very well today, s/p adrenal surgery and he does have f/u with Dr Whyte OV 04/23/2023: Here for his f/u apt, he feels well today Fela Pelayo MD [address] [place] [address], [address], [place], [address], [facility] [employer] 04/30/2023 23:11:50 09/22/2023 text/html OV 07/25/2020:Here to establish carePast Hx:SmokerReviewed social family and surgical historyHe is doing well, he would like to get labs and also add labs for STI as he has had multiple sexual partners since the recent pastHe denies any complaintsHe also smokes quite heavily, 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, he also has a history of heavy alcohol use but has abstained from this since the past 4-5 yearsOV 01/31/2021:Here for his f/u aptHe is doing well, states that he has lost 26 pounds with diet and exerciseHe did do the labsOV 08/01/2021:Here for his routine apt and wellnessHe feels wellNo recent labsOV 01/28/2022:Here for his f/u apt, he feels well, he did do the labs OV 07/15/2022:Here for his routine apt, he is doing well, has noted some dry cough, some SOB, feels that he may have put on some weight, states that he does vape and smokes now very rarely but has not entirely quit cigarettes OV 09/02/2022:Here for his f/u apt, he has now seen Dr Whyte and did have a PET CT scan done as well as a MRI of the T spine OV 10/14/2022:Here for his 6 week f/u apt, he feels well today, no recent labs, he is to get adrenal gland surgery OV 12/30/2022: Here for his f/u apt, he is doing very well today, s/p adrenal surgery and he does have f/u with Dr Whyte OV 04/23/2023: Here for his f/u apt, he feels well today OV 09/22/2023: Here for his routine apt, he is doing well, he did do the labs, states that he is to see Dr Pato Pelayo MD [address] [place] [address], [facility], [place], [address], [facility] [employer] 09/22/2023 12:50:52 03/22/2024 text/html OV 07/25/2020:Here to establish carePast Hx:SmokerReviewed social family and surgical historyHe is doing well, he would like to get labs and also add labs for STI as he has had multiple sexual partners since the recent pastHe denies any complaintsHe also smokes quite heavily, 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, he also has a history of heavy alcohol use but has abstained from this since the past 4-5 yearsOV 01/31/2021:Here for his f/u aptHe is doing well, states that he has lost 26 pounds with diet and exerciseHe did do the labsOV 08/01/2021:Here for his routine apt and wellnessHe feels wellNo recent labsOV 01/28/2022:Here for his f/u apt, he feels well, he did do the labs OV 07/15/2022:Here for his routine apt, he is doing well, has noted some dry cough, some SOB, feels that he may have put on some weight, states that he does vape and smokes now very rarely but has not entirely quit cigarettes OV 09/02/2022:Here for his f/u apt, he has now seen Dr Whyte and did have a PET CT scan done as well as a MRI of the T spine OV 10/14/2022:Here for his 6 week f/u apt, he feels well today, no recent labs, he is to get adrenal gland surgery OV 12/30/2022: Here for his f/u apt, he is doing very well today, s/p adrenal surgery and he does have f/u with Dr Whyte OV 04/23/2023: Here for his f/u apt, he feels well today OV 09/22/2023: Here for his routine apt, he is doing well, he did do the labs, states that he is to see Dr Whyte OV 03/22/2024: Here for his f/u apt, he feels well today, he did do the labs, he has noted a blister on the palm of his R hand, no pain, no burn injury Fela Pelayo MD [address] [place] [address], [address], [place], [address], [place] [facility] 03/22/2024 18:16:34
--- OUTSIDE RECORDS SUMMARY | 2024-06-24 09:14 | XMS_ITS | Clinical Summary ---
Author Organization [facility] Address [address] [place] [address] Care Team Providers Care Research Programmer Name Role Phone Fela Pelayo MD Primary Care Provider Allergies No known active allergies Medications atorvastatin (LIPITOR) 40 mg tablet Take 40 mg by mouth daily. 07/15/2022 Active multivitamin with iron tablet Take 1 Tablet by mouth daily. Active aspirin (ECOTRIN EC) 81 mg Tablet, Delayed Release (E.C.) Take 81 mg by mouth daily. Active Active Problems No known active problems Encounters Date Type Department Care Team Description 06/24/2024 9:30 AM DATA MIGRATION CONSULTANT Office Visit [facility] Oncology and Hematology [facility] [address] [place] [address] Franky Whyte MD Arrived 06/23/2024 Orders Only [facility] Oncology and [facility] [address] [place] [address] Franky Whyte MD Adrenal mass (Primary Dx) 06/01/2024 External Device Data [facility] ABSTRACTION Provider, Abstract 05/17/2024 External Device Data [facility] ABSTRACTION Provider, Abstract 04/12/2024 External Device Data [facility] ABSTRACTION Provider, Abstract from Last 3 Months Family History Medical History Relation Name Comments No Known Problems Brother Cancer Father Breast Cancer Mother Diabetes Mother No Known Problems Sister Relation Name Status Comments Brother Alive Father Mother Alive Sister Alive Social History Tobacco Use Types Packs/Day Years Used Date Smoking Tobacco: Former Cigarettes Q uit: 11/2021 Smokeless Tobacco: Never Tobacco Cessation:Counseling Given: Not Answered Alcohol Use Standard Drinks/Week Comments Not Currently [...] on file Sexual Orientation Not on file Last Filed Vital Signs Vital Sign Reading Time Taken Comments Blood Pressure 136/91 06/24/2024 9:09 AM DATA MIGRATION CONSULTANT Pulse 91 06/24/2024 9:02 AM DATA MIGRATION CONSULTANT Temperature 36.3 C (97.4 F) 06/24/2024 9:02 AM DATA MIGRATION CONSULTANT Respiratory Rate 15 06/24/2024 9:02 AM DATA MIGRATION CONSULTANT Oxygen Saturation 97% 06/24/2024 9:02 AM DATA MIGRATION CONSULTANT Inhaled Oxygen Concentration - - Weight 134.6 kg (296 lb 12.8 oz) 06/24/2024 9:02 AM DATA MIGRATION CONSULTANT Height 185.4 cm (6' 1 ) 12/08/2023 9:15 AM CDT Body Mass Index 39.16 12/08/2023 9:15 AM CDT Plan of Treatment Upcoming Encounters Date Type Department Care Team (Late st Contact Info) Description 06/24/2024 9:30 AM DATA MIGRATION CONSULTANT Office Visit [facility] Oncology and Hematology - [place] [address] [facility] [address] [place] [address] Franky Whyte MD [address] [facility] [address] [place] [address] Arrived 09/06/2024 9:00 AM CDT Office Visit [facility] - [place] [address] [facility] [address] [place] [address] Shanae Lyman MD [address] [facility] [address] [place] [address] Health Maintenance Due Date Last Done Comments Pre-Diabetes and Diabetes Screening 1972 DTAP/TDAP/TD VACCINES (1 - Tdap) 07/15/1991 HEPATITIS B VACCINES (1 of 3 - 19+ 3-dose series) 07/15/1991 COLORECTAL SCREENING 2017 Colorectal Cancer Screening 2017 FIT-DNA Q 3 years 2017 FIT/FOBT Q 1 year 2017 Flex Sig/CT Colonography Q 5 years 2017 ZOSTER VACCINE (1 of 2) 2022 INFLUENZA VACCINE (#1) 2023 02/03/2021, 2019 Preventative Visit- Commercial 05/04/2024 09/02/2022 Medical Devices Implanted Type Area Baby Nurse Device Identifier Shelf Expiration Date Model / Serial / Lot Clip Hem[employer]ok Lrg [id number] - Csc - [id number] Implanted:Qt y: 1 on 11/19/2022 by Shanae Lyman MD at [facility] Clip Left: Abdomen TELEFLEX- WECK CLOSURE SYS 06/02/2027 [id number] / / [id number] Hemostat Surg Snow 2x4in 2081 [id number] Implanted:Qt y: 1 on 11/19/2022 by Shanae Lyman MD at [facility] Hemostatic Left: Abdomen [employer]- [employer] [id number] 06/03/2024 2082 / / [id number] Insurance [facility] [id number] Advance Directives For more information, please contact: [phone] * Full Code (Latest Code Status on File) Date Activated Date Inactivated Comments 11/19/2022 4:27 PM 11/20/2022 2:52 PM * Full Code Date Activated Date Inactivated Comments 11/19/2022 5:55 AM 11/19/2022 4:27 PM Care Teams Research Programmer Relationship Specialty Start Date End Date Fela Pelayo MD PCP - General Internal Medicine 07/25/22
--- OUTSIDE RECORDS SUMMARY | 2024-06-24 09:14 | XMS_ITS | Clinical Summary ---
Author Organization [facility] Facility Address [address] [place] [address] Care Team Providers Care Hot Strip Finisher Name Role Phone Fela Pelayo MD Primary Care Provider [phone] Social History Tobacco Use Types Packs/Day Years Used Date Smoking Tobacco: Never Assessed Sex and Gender Information Value Date Recorded Sex Assigned at Not on file Legal Sex Male 5:03 PM EDT Gender Identity Not on file Sexual Orientation Not on file Last Filed Vital Signs Vital Sign Reading Time Taken Comments Blood Pressure 130/82 02/10/2023 2:07 PM CDT Pulse 68 02/10/2023 2:07 PM CDT Temperature 36.1 C (97 F) 02/10/2023 2:07 PM CDT Respiratory Rate 18 02/10/2023 2:07 PM CDT Oxygen Saturation 97% 02/10/2023 2:07 PM CDT Inhaled Oxygen Concentration - - Weight 132 kg (292 lb) 02/10/2023 2:07 PM CDT Height - - Body Mass Index - - Plan of Treatment Health Maintenance Due Date Last Done Comments Pneumococcal Vaccine: Pediat rics (0 to 5 Years) and At-Risk Patients (6 to 64 Years) (1 of 2 - PCV) 1978 Hepatitis B Vaccine (1 of 3 - 19+ 3-dose series) 07/14 Colorectal Cancer Screening: Annual FOBT 2021 Colorectal Cancer Screening: Colonoscopy 2021 Colorectal Cancer Screening: Sigmoidoscopy 2021 Influenza Vaccine (#1) 2024 01/03/2020 Insurance [facility] Care Teams Hot Strip Finisher Relationship Specialty Start Date End Date Fela Pelayo MD [address] [facility], [address] [place] [address] PCP - General Internal Medicine 10/21/22
[2024-06-24 09:55] LABS: Alanine Aminotransferase 28 U/L (6-50); Albumin Level 4.7 g/dL (3.5-5.1); Alkaline Phosphatase 65 U/L (38-126); Anion Gap 12 mmol/L (4-12); Aspartate Amino Transferase 34 U/L (17-59); Bilirubin,Total 0.8 mg/dL (0.2-1.3); Blood Urea Nitrogen 19 mg/dL (9-20); Calcium 9.5 mg/dL (8.4-10.2); Carbon Dioxide 24 mmol/L (22-30); Chloride 104 mmol/L (98-107); Estimated Glomerular Filt Rate > 60; Glucose 95 mg/dL (65-110); Potassium 4.4 mmol/L (3.4-5.0); Sodium 140 mmol/L (137-145)
== END 2024-06-24 08:47 | disposition home or self-care (01) ==
LOC: ANHLAB 08:49
PROVIDERS: PCP Internal Medicine; Visit Provider Internal Medicine Hematology & Oncology
DX: E27.8 Other specified disorders of adrenal gland (principal)
CPT/HCPCS: 36415; 80047; 80053; 85025